=== PATIENT | female | born 1935 | race Caucasian/White ===

== ENCOUNTER 2018-11-07 06:48 | Observation (INO) | payer MEDICARE, BC ==
[2018-11-07] MEDS ORDERED: Sodium Chloride 0.9% 10 ML Syringe FLUSH PRN (07:13)
[2018-11-07] MEDS ORDERED: Sodium Chloride 0.9% 1,000 ML IV SCH (07:15)
[2018-11-07] MEDS ORDERED: Ondansetron 4 MG/2 ML SDV IM ONE (07:16)
[2018-11-07] MEDS ORDERED: cefTRIAXone 2 GM Vial IM ONE (07:17)
[2018-11-07] MEDS ORDERED: Ondansetron 4 MG/2 ML SDV IVPUSH ONE (07:18)
[2018-11-07] MEDS ORDERED: cefTRIAXone 2 GM Vial IVPUSH ONE (07:19)
--- NOTE | 2018-11-07 07:37 | EDM.PDOC ---
ED HPI GENERAL MEDICAL PROBLEM - General Chief Complaint: General Stated Complaint: nausea, fever Time Seen by Provider: 11/07/18 07:10 Source of Information: Reports: Patient History Limitations: Reports: No Limitations - History of Present Illness INITIAL COMMENTS - FREE TEXT/NARRATIVE: [place] comes in the AM with complaints of fever, chills, nausea that started this morning around 5 am. She does state she has SOB. She denies headache, chest pain or pressure or any numbness to jaw, neck or extremities. She denies abdominal pain. Denies urinary symptoms. Denies blood in urine, stool, or emesis. No recent illness. She has had cholecystectomy, appendectomy, hysterectomy with bilateral oophorectomy. Primary physician is Dr. Daly at [facility] in [place]. Onset: Today, Sudden Duration: Intermittent Location: Reports: Generalized Associated Symptoms: Reports: Fever/Chills, Nausea/Vomiting - Related Data Allergies Allergy/AdvReac Type Severity Reaction Status Date / Time atorvastatin [From Lipitor] Allergy Muscle Verified 11/07/18 06:57 Aches Penicillins Allergy Other Verified 11/07/18 06:57 Home Meds: Home Meds Aspirin [Lo-Dose Aspirin EC] 81 mg PO DAILY 06/21/16 [History] Calcium Citrate/Vitamin D2 [Salvador-Citrate Plus Vitamin D Tab] 1 tab PO BID [History] Levothyroxine 75 mcg PO DAILY 06/21/16 [History] Simvastatin [Zocor] 5 mg PO ASDIRECTED 06/21/16 [History] Acetaminophen [Tylenol Arthritis] 1 - 2 tab PO Q8H PRN 11/07/18 [History] Cyanocobalamin (Vitamin B12) [Vitamin B12] 1,000 mcg PO DAILY 11/07/18 [History] Lisinopril 1 tab PO DAILY 11/07/18 [History] Past Medical History Cardiovascular History: Reports: High Cholesterol, Hypertension Endocrine/Metabolic History: Reports: Hypothyroidism - Past Surgical History GI Surgical History: Reports: Appendectomy, Cholecystectomy Female Surgical History: Reports: Hysterectomy Musculoskeletal Surgical History: Reports: Knee Replacement Social & Family History - Tobacco Use Smoking Status *Q: Former Smoker Used Tobacco, but Quit: Yes Month/Year Tobacco Last Used: long ago. Smoked "when I thought it was smart to do it." ED ROS GENERAL - Review of Systems Review Of Systems: See Below Constitutional: Reports: Fever, Chills HEENT: Reports: No Symptoms Respiratory: Reports: Shortness of Breath Cardiovascular: Reports: No Symptoms Endocrine: Reports: No Symptoms GI/Abdominal: Reports: Nausea : Reports: No Symptoms Musculoskeletal: Reports: No Symptoms Skin: Reports: No Symptoms Neurological: Reports: No Symptoms Psychiatric: Reports: No Symptoms Hematologic/Lymphatic: Reports: No Symptoms Immunologic: Reports: No Symptoms ED EXAM, GENERAL - Physical Exam Exam: See Below Free Text/Narrative:: PLEASE USE ER NOTE FOR ADMISSION HISTORY AND PHYSICAL Exam Limited By: No Limitations General Appearance: Alert, WD/WN, No Apparent Distress Eye Exam: Bilateral Eye: EOMI, Normal Inspection, PERRL Ears: Normal TMs Nose: Normal Inspection, Normal Mucosa, No Blood Throat/Mouth: Normal Inspection, Normal Lips, Normal Teeth, Normal Gums, Normal Oropharynx, Normal Voice, No Airway Compromise Head: Atraumatic, Normocephalic Neck: Normal Inspection, Supple, Non-Tender, Full Range of Motion Respiratory/Chest: No Respiratory Distress, Lungs Clear, Normal Breath Sounds, No Accessory Muscle Use, Chest Non-Tender Cardiovascular: Systolic Murmur (2/6) Peripheral Pulses: 2+: Posterior Tibial (L), Posterior Tibial (R), Dorsalis Pedis (L), Dorsalis Pedis (R) GI/Abdominal: Normal Bowel Sounds, Soft, Non-Tender, No Organomegaly, No Distention, No Abnormal Bruit, No Mass Back Exam: Normal Inspection, Full Range of Motion, NT Extremities: Normal Inspection, Normal Range of Motion, Non-Tender, Normal Capillary Refill, No Pedal Edema Neurological: Alert, Oriented, CN II-XII Intact, Normal Cognition, Normal Gait, Normal Reflexes, No Motor/Sensory Deficits Psychiatric: Normal Affect, Normal Mood Skin Exam: Warm, Dry, Intact, Normal Color, No Rash Lymphatic: No Adenopathy EKG INTERPRETATION EKG Date: 11/07/18 Time: 07:35 Rhythm: Other (sinus tachycardia) Rate (Beats/Min): 129 [place]: Normal P-Wave: Present QRS: Normal ST-T: Normal QT: Normal Comparison: NA - No Prior EKG EKG Interpretation Comments: Sinus tachycardia possible old anterior SC Course - Vital Signs Last Recorded V/S: Last Vital Signs Temp 38.1 C 11/07/18 09:12 Pulse 126 H 11/07/18 09:12 Resp 20 11/07/18 08:00 BP 136/71 11/07/18 09:12 Pulse Ox 89 L 11/07/18 09:12 - Orders/Labs/Meds Orders: Active Orders 24 hr Category Date Time Status EKG 12 Lead [EKG Documentation Completion] [RC] STAT Care 11/07/18 07:28 Active CULTURE BLOOD [BC] Stat Lab 11/07/18 07:05 Received CULTURE BLOOD [BC] Stat Lab 11/07/18 07:09 Results CULTURE STREP A CONFIRMATION [] Stat Lab 11/07/18 07:10 Results STREP SCRN A RAPID W CULT CONF [RM] Stat Lab 11/07/18 07:10 Results UA W/MICROSCOPIC [URIN] Stat Lab 11/07/18 07:10 Ordered Sodium Chloride 0.9% [Normal Saline] 1,000 ml Med 11/07/18 07:15 Active IV ASDIRECTED Sodium Chloride 0.9% [Saline Flush] Med 11/07/18 07:13 Active 10 ml FLUSH ASDIRECTED PRN Blood Culture x2 Reflex Set [OM.PC] Stat Oth 11/07/18 07:10 Ordered Saline Lock Insert [OM.PC] Routine Oth 11/07/18 07:13 Ordered Medication Orders Sodium Chloride (Normal Saline) 1,000 mls @ 500 mls/hr IV ASDIRECTED JENI Last Admin: 11/07/18 07:15 Dose: 500 mls/hr Sodium Chloride (Saline Flush) 10 ml FLUSH ASDIRECTED PRN PRN Reason: Keep Vein Open Labs: Laboratory Tests 11/07/18 11/07/18 11/07/18 Range/Units 07:05 07:05 07:05 WBC 5.8 (4.0-10.0) x10^3/uL RBC 4.08 (4.00-5.50) x10^6/uL Hgb 13.8 (12.0-16.0) g/dL Hct 41.4 (33.0-47.0) % MCV 101.5 H (78.0-93.0) fL MCH 33.8 H (26.0-32.0) pg MCHC 33.3 (32.0-36.0) g/dL RDW Coeff of Reggie 12.3 (10.0-15.0) % Plt Count 272 (130-400) x10^3/uL Neut % (Auto) 84.0 H (50.0-80.0) % Lymph % (Auto) 13.8 L (25.0-50.0) % Ponce % (Auto) 0.7 L (2.0-11.0) % Eos % (Auto) 1.0 (0.0-4.0) % Baso % (Auto) 0.5 (0.2-1.2) % PT 10.2 (9.6-11.4) SEC INR 1.0 L (2.0-3.5) Sodium 141 (136-145) mmol/L Potassium 4.0 (3.5-5.1) mmol/L Chloride 105 (98-107) mmol/L Carbon Dioxide 20 L (21-32) mmol/L Anion Gap 20.0 (10-20) mmol/L BUN 33 H (7-18) mg/dL Creatinine 1.3 H (0.55-1.02) mg/dL Est Cr Clr Drug Dosing 25.48 mL/min Estimated GFR (MDRD) 39 Glucose 134 H (74-106) mg/dL Lactic Acid (0.4-2.0) mmol/L Calcium 9.7 (8.5-10.1) mg/dL Corrected Calcium 9.86 (8.5-10.1) mg/dL Total Bilirubin 0.8 (0.2-1.0) mg/dL AST 13 L (15-37) U/L ALT 15 (14-59) U/L Alkaline Phosphatase 81 (46-116) U/L Troponin I (<=0.056) ng/mL NT-Pro-B Natriuret Pep 150 (<=450) pg/mL Total Protein 7.5 (6.4-8.2) g/dL Albumin 3.8 (3.4-5.0) g/dL Globulin 3.7 Albumin/Globulin Ratio 1.03 Amylase 66 (25-115) U/L Lipase 362 (73-393) U/L TSH, Ultra Sensitive 5.295 H (0.358-3.74) uIU/mL 11/07/18 11/07/18 Range/Units 07:05 07:05 WBC (4.0-10.0) x10^3/uL RBC (4.00-5.50) x10^6/uL Hgb (12.0-16.0) g/dL Hct (33.0-47.0) % MCV (78.0-93.0) fL MCH (26.0-32.0) pg MCHC (32.0-36.0) g/dL RDW Coeff of Reggie (10.0-15.0) % Plt Count (130-400) x10^3/uL Neut % (Auto) (50.0-80.0) % Lymph % (Auto) (25.0-50.0) % Ponce % (Auto) (2.0-11.0) % Eos % (Auto) (0.0-4.0) % Baso % (Auto) (0.2-1.2) % PT (9.6-11.4) SEC INR (2.0-3.5) Sodium (136-145) mmol/L Potassium (3.5-5.1) mmol/L Chloride (98-107) mmol/L Carbon Dioxide (21-32) mmol/L Anion Gap (10-20) mmol/L BUN (7-18) mg/dL Creatinine (0.55-1.02) mg/dL Est Cr Clr Drug Dosing mL/min Estimated GFR (MDRD) Glucose (74-106) mg/dL Lactic Acid 4.1 H* (0.4-2.0) mmol/L Calcium (8.5-10.1) mg/dL Corrected Calcium (8.5-10.1) mg/dL Total Bilirubin (0.2-1.0) mg/dL AST (15-37) U/L ALT (14-59) U/L Alkaline Phosphatase (46-116) U/L Troponin I < 0.017 (<=0.056) ng/mL NT-Pro-B Natriuret Pep (<=450) pg/mL Total Protein (6.4-8.2) g/dL Albumin (3.4-5.0) g/dL Globulin Albumin/Globulin Ratio Amylase (25-115) U/L Lipase (73-393) U/L TSH, Ultra Sensitive (0.358-3.74) uIU/mL Meds: Medications Generic Name Dose Route Start Last Admin Trade Name Freq PRN Reason Stop Dose Admin Sodium Chloride 1,000 mls @ 500 mls/hr 11/07/18 07:15 11/07/18 07:15 Normal Saline IV 500 mls/hr ASDIRECTED JENI Administration Sodium Chloride 10 ml 11/07/18 07:13 Saline Flush FLUSH ASDIRECTED PRN Keep Vein Open Discontinued Medications Generic Name Dose Route Start Last Admin Trade Name Kartikq PRN Reason Stop Dose Admin Ceftriaxone Sodium 2 gm 11/07/18 07:19 11/07/18 07:29 Rocephin IVPUSH 11/07/18 07:20 2 gm STAT ONE Administration Ondansetron HCl 4 mg 11/07/18 07:18 11/07/18 07:37 Zofran IVPUSH 11/07/18 07:19 4 mg ONETIME ONE Administration - Re-Assessments/Exams Free Text/Narrative Re-Assessment/Exam: 11/07/18 08:25 Chest x-ray negative for radiologic evidence of infection. No pneumonia, pleural effusions, cardiomegaly or CHF Lab results grossly normal with exception of elevated lactic acid. Questionable causation as to infection or renal status with Creatinine 1.3, BUN 33, GFR 39, WBC level normal at 5.8, still await urinary sample Departure - Departure Time of Disposition: 08:25 Disposition: Refer to Observation Condition: Good Clinical Impression: Lactic acidosis - Discharge Information *PRESCRIPTION DRUG MONITORING PROGRAM REVIEWED*: Not Applicable *COPY OF PRESCRIPTION DRUG MONITORING REPORT IN PATIENT CHRIS: Not Applicable - Problem List & Annotations (1) Lactic acidosis SNOMED Code(s): 70234691 Code(s): E87.2 - ACIDOSIS Status: Acute Priority: Medium Current Visit : Yes - Problem List Review Problem List Initiated/Reviewed/Updated: Yes - My Orders Last 24 Hours: My Active Orders 11/07/18 07:05 CULTURE BLOOD [BC] Stat 11/07/18 07:09 CULTURE BLOOD [BC] Stat 11/07/18 07:10 CULTURE STREP A CONFIRMATION [] Stat STREP SCRN A RAPID W CULT CONF [RM] Stat UA W/MICROSCOPIC [URIN] Stat Blood Culture x2 Reflex Set [OM.PC] Stat 11/07/18 07:13 Sodium Chloride 0.9% [Saline Flush] 10 ml FLUSH ASDIRECTED PRN Saline Lock Insert [OM.PC] Routine 11/07/18 07:15 Sodium Chloride 0.9% [Normal Saline] 1,000 ml IV ASDIRECTED 11/07/18 07:28 EKG 12 Lead [EKG Documentation Completion] [RC] STAT - Assessment/Plan Last 24 Hours: My Active Orders 11/07/18 07:05 CULTURE BLOOD [BC] Stat 11/07/18 07:09 CULTURE BLOOD [BC] Stat 11/07/18 07:10 CULTURE STREP A CONFIRMATION [RM] Stat STREP SCRN A RAPID W CULT CONF [RM] Stat UA W/MICROSCOPIC [URIN] Stat Blood Culture x2 Reflex Set [OM.PC] Stat 11/07/18 07:13 Sodium Chloride 0.9% [Saline Flush] 10 ml FLUSH ASDIRECTED PRN Saline Lock Insert [OM.PC] Routine 11/07/18 07:15 Sodium Chloride 0.9% [Normal Saline] 1,000 ml IV ASDIRECTED 11/07/18 07:28 EKG 12 Lead [EKG Documentation Completion] [RC] STAT Assessment:: lactic acidosis Plan: Plan 1. Lactic acidosis - gentle rehydration due to dehydrated status, recheck lactic acid in 6 hours, recheck metabolic panel in AM, still awaiting urinalysis results 2. Dehydration - continue IV fluids 0.9% Sodium Chloride at 100 ml/hr
--- NOTE | 2018-11-07 07:43 | CR ---
[id number] RAD/RAD Chest PA or AP 1V EXAM: SINGLE VIEW CHEST. INDICATION: SEPSIS COMPARISON: NO PREVIOUS SIMILAR EXAM IS AVAILABLE FINDINGS: The lungs are clear. The cardiomediastinal contour is moderately enlarged. IMPRESSION: NO PNEUMONIA. Prashant Levin MD 11/07/18 0741 Thank you for allowing us to participate in the care of your patient.
[2018-11-07] MEDS ORDERED: Ondansetron 4 MG Tab.DIS PO PRN (09:56)
[2018-11-07] MEDS ORDERED: Acetaminophen 325 MG Tab PO PRN (09:56)
[2018-11-07] MEDS ORDERED: Ibuprofen 200 MG Tab PO PRN (09:56)
[2018-11-07] MEDS ORDERED: Acetaminophen/HYDROcodone 325-5 MG Tab PO PRN (09:56)
[2018-11-07] MEDS ORDERED: Albuterol/Ipratropium 3.0-0.5 MG/3 ML Neb Soln NEB PRN (09:56)
[2018-11-07] MEDS ORDERED: Lisinopril 10 MG Tab PO SCH (10:45)
[2018-11-07] MEDS: LEVOTHYROXINE 75 MCG PO SCH (10:52)
[2018-11-07] MEDS: Sodium Chloride 0.9% 1,000 ML IV SCH ×2 (10:53→18:51)
[2018-11-07] MEDS ORDERED: LISINOPRIL 10 MG PO SCH (20:00)
[2018-11-07] MEDS ORDERED: Calcium Citrate/Vitamin D3 315 MG-250 Unit Tab PO SCH (20:00)
[2018-11-07] MEDS ORDERED: Cyanocobalamin (Vitamin B12) 1,000 MCG Tab PO SCH (20:00)
[2018-11-07] MEDS ORDERED: Aspirin 81 MG Tab.EC PO SCH (20:00)
[2018-11-07] MEDS ORDERED: [UNRECOGNIZED DRUG - OTHER] PO SCH (20:00)
[2018-11-08 04:55] VITALS: BP 136/61
[2018-11-08 06:56] LABS: ANION GAP 11.3 mmol/L (10-20)
[2018-11-08] MEDS: LEVOTHYROXINE 75 MCG PO SCH (07:39)
--- NOTE | 2018-11-08 08:11 | PCM.DCSUM1 ---
Discharge Summary - Hospital Course Free Text/Narrative:: Pt. was admitted observation on 11/07/18 with UTI and lactic acidosis. She was admitted by Wan Moreno. Please refer to his H and P regarding this admission. Pt. states she is feeling much better today. Her lactic acid has normalized. She states that she is no longer experiencing abdominal pain and she states that she feels less fatigued and weak. She was given normal saline overnight. Her urine has cleared considerably. Continues to have some low-grade fevers but that has decreased as well. Pt. is requesting discharge at this point. Diagnosis: Stroke: No Modified Cassia Scale: No Symptoms at All Modified Cassia Scale Score: 0 - Discharge Data Discharge Date: 11/08/18 Discharge Disposition: Home, Self-Care 01 Condition: Good - Discharge Diagnosis/Problem(s) (1) UTI (urinary tract infection) SNOMED Code(s): 77201122 ICD Code: N39.0 - URINARY TRACT INFECTION, SITE NOT SPECIFIED Status: Acute Current Visit: Yes Qualifiers: Urinary tract infection type: acute cystitis Hematuria presence: with hematuria Qualified Code(s): N30.01 - Acute cystitis with hematuria (2) Lactic acidosis SNOMED Code(s): 73152080 ICD Code: E87.2 - ACIDOSIS Status: Acute Priority: Medium Current Visit : Yes - Patient Instructions Diet: Usual Diet as Tolerated Activity: As Tolerated Driving: Do Not Drive Showering/Bathing: May Shower - Discharge Plan *PRESCRIPTION DRUG MONITORING PROGRAM REVIEWED*: Not Applicable *COPY OF PRESCRIPTION DRUG MONITORING REPORT IN PATIENT CHRIS: Not Applicable Home Medications: Home Meds Aspirin [Lo-Dose Aspirin EC] 81 mg PO BEDTIME 06/21/16 [History] Calcium Citrate/Vitamin D2 [Salvador-Citrate Plus Vitamin D Tab] 1 tab PO BEDTIME [History] Levothyroxine 75 mcg PO DAILY 06/21/16 [History] Simvastatin [Zocor] 5 mg PO ASDIRECTED 06/21/16 [History] Acetaminophen [Tylenol Arthritis] 1 - 2 tab PO Q8H PRN 11/07/18 [History] Cyanocobalamin (Vitamin B12) [Vitamin B12] 1,000 mcg PO BEDTIME 11/07/18 [ History] Lisinopril 1 tab PO BEDTIME 11/07/18 [History] Patient Handouts: Urinary Tract Infection, Adult Forms: ED Department Discharge Referrals: Norma Daly MD [Primary Care Provider] - - Discharge Summary/Plan Comment DC Time >30 min.: Yes Discharge Summary/Plan Comment: Cipro 500mg twice daily for 7 days. Take a probiotic daily. Follow-up in clinic in 10-14 days Drink plenty of fluids Tylenol as needed for fever Return to ER if you have any increased weakness, lightheadedness, chest pain, shortness of breath, or pain. - General Info Date of Service: 11/08/18 Functional Status: Reports: Pain Controlled - Review of Systems General: Reports: No Symptoms HEENT: Reports: No Symptoms Pulmonary: Reports: No Symptoms Cardiovascular: Reports: No Symptoms Gastrointestinal: Reports: No Symptoms Genitourinary: Reports: Dysuria Musculoskeletal: Reports: No Symptoms Skin: Reports: No Symptoms Neurological: Reports: No Symptoms Psychiatric: Reports: No Symptoms - Patient Data Vitals - Most Recent: Last Vital Signs Temp 37.1 C 11/08/18 04:54 Pulse 97 11/08/18 04:54 Resp 18 11/08/18 04:54 BP 136/61 11/08/18 04:54 Pulse Ox 95 11/08/18 04:54 Weight - Most Recent: 68.039 kg I&O - Last 24 hours: Intake & Output 11/07/18 11/08/18 11/08/18 22:59 06:59 14:59 Intake Total 1229 1364 Balance 1229 1364 Lab Results - Last 24 hrs: Laboratory Results - last 24 hr 11/07/18 11/07/18 11/07/18 Range/Units 07:05 10:04 13:00 Sodium (136-145) mmol/L Potassium (3.5-5.1) mmol/L Chloride (98-107) mmol/L Carbon Dioxide (21-32) mmol/L Anion Gap (10-20) mmol/L BUN (7-18) mg/dL Creatinine (0.55-1.02) mg/dL Est Cr Clr Drug Dosing mL/min Estimated GFR (MDRD) Glucose (74-106) mg/dL Lactic Acid 1.8 (0.4-2.0) mmol/L Calcium (8.5-10.1) mg/dL Troponin I < 0.017 (<=0.056) ng/mL Urine Color Yellow (YELLOW) Urine Appearance Turbid H (CLEAR) Urine pH 5.5 (5.0-8.0) Ur Specific Carrier 1.010 Urine Protein 30 H (NEGATIVE) mg/dL Urine Glucose (UA) Negative (NEGATIVE) mg/dL Urine Ketones Negative (NEGATIVE) mg/dL Urine Occult Blood Small H (NEGATIVE) Urine Nitrite Positive H (NEGATIVE) Urine Bilirubin Negative (NEGATIVE) Urine Urobilinogen 0.2 (0.2) EU/dL Ur Leukocyte Esterase Moderate H (NEGATIVE) Urine RBC 0-5 (NOT SEEN) /HPF Urine WBC >100 H (NOT SEEN) /HPF Urine WBC Clumps Few Ur Squamous Epith Cells Few H (NEGATIVE) /HPF Amorphous Sediment Moderate Urine Bacteria Moderate H (NEGATIVE) /HPF Hyaline Casts Occasional H (NEGATIVE) /HPF Urine Mucus Few H (NEGATIVE) /LPF 11/08/18 11/08/18 Range/Units 06:19 06:19 Sodium 141 (136-145) mmol/L Potassium 4.3 (3.5-5.1) mmol/L Chloride 108 H (98-107) mmol/L Carbon Dioxide 26 (21-32) mmol/L Anion Gap 11.3 (10-20) mmol/L BUN 19 H (7-18) mg/dL Creatinine 1.1 H (0.55-1.02) mg/dL Est Cr Clr Drug Dosing 30.11 mL/min Estimated GFR (MDRD) 47 Glucose 106 (74-106) mg/dL Lactic Acid 0.7 (0.4-2.0) mmol/L Calcium 9.3 (8.5-10.1) mg/dL Troponin I (<=0.056) ng/mL Urine Color (YELLOW) Urine Appearance (CLEAR) Urine pH (5.0-8.0) Ur Specific Carrier Urine Protein (NEGATIVE) mg/dL Urine Glucose (UA) (NEGATIVE) mg/dL Urine Ketones (NEGATIVE) mg/dL Urine Occult Blood (NEGATIVE) Urine Nitrite (NEGATIVE) Urine Bilirubin (NEGATIVE) Urine Urobilinogen (0.2) EU/dL Ur Leukocyte Esterase (NEGATIVE) Urine RBC (NOT SEEN) /HPF Urine WBC (NOT SEEN) /HPF Urine WBC Clumps Ur Squamous Epith Cells (NEGATIVE) /HPF Amorphous Sediment Urine Bacteria (NEGATIVE) /HPF Hyaline Casts (NEGATIVE) /HPF Urine Mucus (NEGATIVE) /LPF MELECIO Results - Last 24 hrs: Microbiology 11/07/18 07:10 Quick Strep Confirmation Culture - Final Throat NO GROUP A STREP ISOLATED Group A Streptococcus Rapid Screen - Final NEGATIVE STREP A SCREEN 11/07/18 07:09 Aerobic Blood Culture - Preliminary Blood - Venous - Lab Draw NO GROWTH AFTER 1 DAY Anaerobic Blood Culture - Final 11/07/18 07:05 Aerobic Blood Culture - Preliminary Blood - Venous NO GROWTH AFTER 1 DAY Anaerobic Blood Culture - Preliminary NO GROWTH AFTER 1 DAY 11/07/18 07:10 Influenza Type A Antigen Screen - Final Nasopharyngeal Swab NEGATIVE INFLUENZA A VIRUS AG Influenza Type B Antigen Screen - Final NEGATIVE INFLUENZA B VIRUS AG Med Orders - Current: Current Medications Acetaminophen (Tylenol) 650 mg PO Q4H PRN PRN Reason: Pain (Mild 1-3)/fever Hydrocodone Bitart/Acetaminophen ([place] 325-5 Mg) 1 tab PO Q4H PRN PRN Reason: Pain (moderate 4-6) Albuterol/Ipratropium (Duoneb 3.0-0.5 Mg/3 Ml) 3 ml NEB Q4H PRN PRN Reason: dyspnea/wheezing Aspirin (Halfprin) 81 mg PO BEDTIME [facility] Last Admin: 11/07/18 20:12 Dose: 81 mg Calcium Citrate (Calcium Citrate + D) 1 tab PO BEDTIME [facility] Last Admin: 11/07/18 20:12 Dose: 1 tab Cyanocobalamin (Vitamin B12) 1,000 mcg PO BEDTIME [facility] Last Admin: 11/07/18 20:12 Dose: 1,000 mcg Sodium Chloride (Normal Saline) 1,000 mls @ 100 mls/hr IV ASDIRECTED [facility] Last Admin: 11/07/18 18:51 Dose: 100 mls/hr Ibuprofen (Motrin) 600 mg PO Q6H PRN PRN Reason: Pain (mild 1-3) Levothyroxine Sodium (Levothyroxine) 75 mcg PO DAILY [facility] Last Admin: 11/08/18 07:39 Dose: 75 mcg Lisinopril (Prinivil) 10 mg PO BEDTIME [facility] Last Admin: 11/07/18 20:13 Dose: 10 mg Ondansetron HCl (Zofran Odt) 4 mg PO Q6H PRN PRN Reason: nausea, able to take PO Simvastatin (Zocor) 10 mg PO BEDTIME [facility] Last Admin: 11/07/18 20:14 Dose: 10 mg Sodium Chloride (Saline Flush) 10 ml FLUSH ASDIRECTED PRN PRN Reason: Keep Vein Open Discontinued Medications Ceftriaxone Sodium (Rocephin) 2 gm IVPUSH STAT ONE Stop: 11/07/18 07:20 Last Admin: 11/07/18 07:29 Dose: 2 gm Sodium Chloride (Normal Saline) 1,000 mls @ 500 mls/hr IV ASDIRECTED [facility] Last Admin: 11/07/18 07:15 Dose: 500 mls/hr Lisinopril (Prinivil) 10 mg PO DAILY [facility] Last Admin: 11/07/18 11:35 Dose: Not Given Ondansetron HCl (Zofran) 4 mg IVPUSH ONETIME ONE Stop: 11/07/18 07:19 Last Admin: 11/07/18 07:37 Dose: 4 mg - Exam Quality Assessment: Reports: Supplemental Oxygen General: Reports: Alert, Oriented HEENT: Reports: Pupils Equal, Pupils Reactive, EOMI, Mucous Membr. Moist/[place] Neck: Reports: Supple Lungs: Reports: Clear to Auscultation, Normal Respiratory Effort Cardiovascular: Reports: Regular Rate, Regular Rhythm GI/Abdominal Exam: Normal Bowel Sounds, Soft, Non-Tender, No Organomegaly, No Distention, No Abnormal Bruit, No Mass, Pelvis Stable (Female) Exam: Deferred Rectal (Female) Exam: Deferred Back Exam: Reports: Normal Inspection, Full Range of Motion Extremities: Normal Inspection, Normal Range of Motion, Non-Tender, No Pedal Edema, Normal Capillary Refill Skin: Reports: Warm, Dry, Intact Neurological: Reports: No New Focal Deficit Psy/Mental Status: Reports: Alert, Normal Affect, Normal Mood
== END 2018-11-08 08:53 | disposition home or self-care (01) ==
LOC: VM.ED 06:48 → VM.MS 08:20 → VM.ED 08:25
PROVIDERS: ADMIT Nurse Practitioner Family; ATTEND Nurse Practitioner Family
DX: N30.01 Acute cystitis with hematuria (principal); E87.2 Acidosis; Z87.891 Personal history of nicotine dependence; Z79.82 Long term (current) use of aspirin; Z79.899 Other long term (current) drug therapy; Z88.8 Allergy status to other drugs, medicaments and biological substances; Z88.0 Allergy status to penicillin
CPT/HCPCS: 36415; 71045; 80048; 80053; 81001; 82150; 83605; 83690; 83880; 84443; 84484; 85025; 85610; 87040; 87081; 87086; 87804; 87804-59; 87880-QW; 93005; 93010; 96361; 96374; 96375; 99217; 99220; 99285-25; A9270-GY; J0696; J2405; J7030

== ENCOUNTER 2019-05-10 03:31 | Emergency (ER) | payer MEDICARE, BC ==
[2019-05-10] MEDS ORDERED: Take Home: Acetaminophen/HYDROcodone 325-5 MG, 5 Tab Pack PO ONE (03:48)
[2019-05-10 04:24] VITALS: BP 188/99; PULSE 78
--- NOTE | 2019-05-10 06:37 | EDM.PDOC ---
ED HPI GENERAL MEDICAL PROBLEM - General Chief Complaint: General Stated Complaint: Shingles Pain Time Seen by Provider: 05/10/19 03:40 Source of Information: Reports: Patient History Limitations: Reports: No Limitations - History of Present Illness INITIAL COMMENTS - FREE TEXT/NARRATIVE: PtNino presents to ER with complaints of shingles pain. Pt. was seen in clinic on and started on a week of acyclovir. She has been experiencing searing pain to the R side of her chest for approx. 1 week. Denies any fever or chills. She was started on tramadol yesterday but this has not been helping. She states that she has not been able to sleep. She characterizes the discomfort as an electric, shooting pain with a burning sensation as well. Onset Date: 05/10/19 Location: Reports: Chest Treatments PROFESSOR OF GEOLOGY: Reports: NSAIDS, Other (see below) Other Treatments PROFESSOR OF GEOLOGY: Tramadol Right Side of Chest and Right Mid-BAck Pain Score (Numeric/FACES): 7 - Related Data Allergies Allergy/AdvReac Type Severity Reaction Status Date / Time Penicillins Allergy Unknown Shortness Verified 05/10/19 04:17 of Breath influenza virus vacc Allergy Rash Verified 05/10/19 04:17 trivalent, split [From Fluzone] atorvastatin [From Lipitor] AdvReac Unknown Muscle Verified 11/07/18 10:16 Aches Home Meds: Home Meds Aspirin [Lo-Dose Aspirin EC] 81 mg PO BEDTIME 06/21/16 [History] Calcium Citrate/Vitamin D2 [Salvador-Citrate Plus Vitamin D Tab] 1 tab PO BID [History] Levothyroxine 75 mcg PO DAILY 06/21/16 [History] Simvastatin [Zocor] 10 mg PO ASDIRECTED 06/21/16 [History] Acetaminophen [Tylenol Arthritis] 1 - 2 tab PO Q8H PRN 11/07/18 [History] Cyanocobalamin (Vitamin B12) [Vitamin B12] 1,000 mcg PO BEDTIME 11/07/18 [ History] Lisinopril 1 tab PO BEDTIME 11/07/18 [History] Alendronate Sodium [Fosamax] 70 mg PO ASDIRECTED 05/10/19 [History] Past Medical History HEENT History: Reports: Hard of Hearing, Other (See Below) Other HEENT History: 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 Left wrist fracture. Complete tear of right rotator cuff Neurological History: Reports: Other (See Below) Other Neuro History: Memory Difficulty Psychiatric History: Reports: Other (See Below) Other Psychiatric History: High risk medication use Endocrine/Metabolic History: Reports: Hypothyroidism, Other (See Below) Other Endocrine/Metabolic History: Hyperglycemia Hematologic History: Reports: B12 Deficiency, Other (See Below) Other Hematologic History: Macrocytosis - Past Surgical History HEENT Surgical History: Reports: Cataract Surgery GI Surgical History: Reports: Appendectomy, Cholecystectomy, Colonoscopy, Other (See Below) Other GI Surgeries/Procedures: Laparoscopic procedure for bowel obstruction in 1984 Female Surgical History: Reports: Hysterectomy Musculoskeletal Surgical History: Reports: Knee Replacement Social & Family History - Family History Family Medical History: Noncontributory - Tobacco Use Smoking Status *Q: Never Smoker - Caffeine Use Caffeine Use: Reports: Coffee - Recreational Drug Use Recreational Drug Use: No ED ROS GENERAL - Review of Systems Review Of Systems: See Below Constitutional: Reports: No Symptoms HEENT: Reports: No Symptoms Respiratory: Reports: No Symptoms Cardiovascular: Reports: No Symptoms Endocrine: Reports: No Symptoms GI/Abdominal: Reports: No Symptoms : Reports: No Symptoms Musculoskeletal: Reports: No Symptoms Skin: Reports: Other (shingles) Neurological: Reports: No Symptoms Psychiatric: Reports: No Symptoms Hematologic/Lymphatic: Reports: No Symptoms Immunologic: Reports: No Symptoms ED EXAM, GENERAL - Physical Exam Exam: See Below Exam Limited By: No Limitations General Appearance: Alert, WD/WN, No Apparent Distress Respiratory/Chest: No Respiratory Distress, Lungs Clear, Normal Breath Sounds, No Accessory Muscle Use, Chest Non-Tender Cardiovascular: Normal Peripheral Pulses, Regular Rate, Rhythm, No Edema, No Gallop, No JVD, No Murmur, No Rub Skin Exam: Warm, Dry, Zoster-Like Rash (extending from anterior into lateral and posterior chest wall on the R side.) Course - Vital Signs Last Recorded V/S: Last Vital Signs Temp 35.7 C 05/10/19 03:35 Pulse 78 05/10/19 03:35 Resp 14 05/10/19 03:35 BP 188/99 H 05/10/19 03:35 Pulse Ox 98 05/10/19 03:35 - Orders/Labs/Meds Meds: Medications Discontinued Medications Generic Name Dose Route Start Last Admin Trade Name Sudha PRN Reason Stop Dose Admin Hydrocodone Bitart/Acetaminophen 1 packet 05/10/19 03:48 05/10/19 03:57 Take Home: Acetam/Hydrocodon 325-5 Mg, 5 Pack PO 05/10/19 03:49 1 packet ONETIME ONE Administration Departure - Departure Time of Disposition: 18:51 Disposition: Home, Self-Care 01 Clinical Impression: Shingles - Discharge Information Instructions: Shingles, [id number] Referrals: Norma Daly MD [Primary Care Provider] - Forms: ED Department Discharge Additional Instructions: Roxana 5/325mg 1 tablet every 4-6 hours as needed for pain Lidoderm patches up to 3 patches every 12 hours to painful areas Follow-up in clinic in 7-10 days - Assessment/Plan Plan: Pt. was started on Roxana 5/325mg 1 every 4-6 hours as needed for pain. Stop tramadol. She was also given a script for Lidoderm patches that she can fill at the pharmacy. She was advised to follow-up in clinic in 10-14 days. All questions were answered.
== END 2019-05-10 04:06 | disposition home or self-care (01) ==
LOC: VM.ED 03:31
DX: B02.9 Zoster without complications (principal); I10 Essential (primary) hypertension; E78.00 Pure hypercholesterolemia, unspecified; E03.9 Hypothyroidism, unspecified; Z79.82 Long term (current) use of aspirin; Z79.899 Other long term (current) drug therapy; Z88.8 Allergy status to other drugs, medicaments and biological substances; Z88.0 Allergy status to penicillin; Z88.7 Allergy status to serum and vaccine
CPT/HCPCS: 99283; 99284; A9270

== ENCOUNTER 2020-11-13 10:04 | Observation (INO) | payer MEDICARE, BC ==
[2020-11-13] MEDS ORDERED: Sodium Chloride 0.9% 10 ML Syringe FLUSH PRN (10:15)
--- NOTE | 2020-11-13 11:03 | PCM.HP.2 ---
H&P History of Present Illness - General Date of Service: 11/13/20 Admit Problem/Dx: Admission Diagnosis/Problem Admission Diagnosis/Problem Weakness Source of Information: Patient, Family History Limitations: Reports: No Limitations - History of Present Illness Initial Comments - Free Text/Narative: France Drew is a 85yr female with a PMH of HTN, HLD, Hypothyroidism, memory concerns, osteoporosis, and vitamin deficiencies who presents today forweakness and ongoing lightheadedness. She was initially evaluated in the clinic on 11/12/2020 for complaints of palpitations with associated chest wall pain and lightheadedness. EKG demonstrated sinus tachycardia, CBC was within normal limits with some volume contraction noted, BMP with mild electrolyte disturbances and REMINGTON (Cr 2.03, baseline 1.0-1.2), normal troponin and normal TSH. She was found to be severely dehydrated with an AK I and was given 1 L of fluid in the clinic and discharged home with instructions to increase her fluid intake and follow-up if symptoms were worsening.She did okay into the evening and slept well last night however upon wakening this morning she felt overall weak and lightheaded. She is joined by her and daughter;altogether decision was made to admit her to the hospital under observation status for fluids and closer monitoring as well as further workup. She denies any recent travel. Only medication change was addition of Aricept on 11/08/20. Got her first COVID shot 4 weeks ago, deferred 2nd shot today. - Related Data Allergies/Adverse Reactions: Allergies Allergy/AdvReac Type Severity Reaction Status Date / Time influenza virus vacc Allergy Unknown Rash Verified 11/13/20 11:14 trivalent, split [From Fluzone] Penicillins Allergy Unknown Shortness Verified 11/13/20 11:14 of Breath atorvastatin [From Lipitor] AdvReac Unknown Muscle Verified 11/13/20 11:14 Aches Home Medications: Home Meds Aspirin [Lo-Dose Aspirin EC] 81 mg PO BEDTIME 06/21/16 [History] Calcium Citrate/Vitamin D2 [Salvador-Citrate Plus Vitamin D Tab] 1 tab PO BIDMEALS [History] Levothyroxine 75 mcg PO DAILY 06/21/16 [History] Acetaminophen [Tylenol Arthritis] 650 - 1,300 mg PO Q8H PRN MDD 4000 mg/24 hours 11/07/18 [History] Cyanocobalamin (Vitamin B12) [Vitamin B12] 1,000 mcg PO BEDTIME 11/07/18 [History] Alendronate Sodium [Fosamax] 70 mg PO Q7D 05/10/19 [History] Donepezil [Aricept] 5 mg PO DAILY 11/13/20 [History] Metoprolol Succinate [Toprol XL] 37.5 mg PO DAILY 11/13/20 [History] Simvastatin [Zocor] 10 mg PO DAILY 11/13/20 [History] lisinopriL [Prinivil] 20 mg PO DAILY 11/13/20 [History] Past Medical History HEENT History: Reports: Hard of Hearing, Other (See Below) Other HEENT History: 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 Left wrist fracture. Complete tear of right rotator cuff Neurological History: Reports: Other (See Below) Other Neuro History: Memory Difficulty Psychiatric History: Reports: Other (See Below) Other Psychiatric History: High risk medication use Endocrine/Metabolic History: Reports: Hypothyroidism, Other (See Below) Other Endocrine/Metabolic History: Hyperglycemia Hematologic History: Reports: B12 Deficiency, Other (See Below) Other Hematologic History: Macrocytosis - Past Surgical History HEENT Surgical History: Reports: Cataract Surgery Cardiovascular Surgical History: Reports: Varicose GI Surgical History: Reports: Appendectomy, Cholecystectomy, Colonoscopy, Other (See Below) Other GI Surgeries/Procedures: Laparoscopic procedure for bowel obstruction in 1984 Female Surgical History: Reports: Hysterectomy Musculoskeletal Surgical History: Reports: Knee Replacement Social & Family History - Family History Family Medical History: No Pertinent Family History - Caffeine Use Caffeine Use: Reports: Coffee H&P Review of Systems - Review of Systems: Review Of Systems: See Below General: Reports: Malaise, Weakness, Fatigue HEENT: Reports: No Symptoms Pulmonary: Reports: No Symptoms Cardiovascular: Reports: No Symptoms (palptiations and CP improved) Gastrointestinal: Reports: No Symptoms Genitourinary: Reports: No Symptoms Musculoskeletal: Reports: No Symptoms Skin: Reports: No Symptoms Psychiatric: Reports: No Symptoms Neurological: Reports: Dizziness (light-headedness) Exam - Exam Exam: See Below - Exam General: Alert, Oriented, Other (tired appearing) HEENT: Conjunctiva Clear, EOMI, Mucosa Moist & Babcock, Posterior Pharynx Clear, Pupils Reactive, TMs Clear Neck: Supple, Trachea Midline Lungs: Clear to Auscultation, Normal Respiratory Effort Cardiovascular: Regular Rate, Regular Rhythm, Systolic Murmur GI/Abdominal Exam: Normal Bowel Sounds, Soft, Non-Tender, No Distention Extremities: Normal Inspection, Non-Tender, No Pedal Edema Skin: Warm, Dry, Other (tenting for 3s - dehydration) Neurological: Cranial Nerves Intact Neuro Extensive - Mental Status: Alert, Oriented x3, Normal Mood/Affect Neuro Extensive - Motor, Sensory, Reflexes: CN II-XII Intact, Normal Gait Psychiatric: Alert, Normal Affect, Normal Mood - Patient Data Result Diagrams: 11/13/20 10:40 11/13/20 10:40 - Problem List (1) Weakness SNOMED Code(s): 37809018 ICD Code: R53.1 - WEAKNESS Status: Acute Current Visit: Yes (2) Dehydration with hyponatremia SNOMED Code(s): 15210152 ICD Code: E86.0 - DEHYDRATION; E87.1 - HYPO-OSMOLALITY AND HYPONATREMIA Status: Acute Current Visit: Yes Problem List Initiated/Reviewed/Updated: Yes Orders Last 24hrs: Active Orders 24 hr Category Date Time Status Patient Status [ADT] Routine ADT 11/13/20 10:15 Active Intake and Output [RC] 06,18 Care 11/13/20 10:16 Active Oxygen Therapy [RC] .PRN Care 11/13/20 10:15 Active VTE/DVT Education [RC] .PRN Care 11/13/20 10:15 Active Vital Signs [RC] 02,06,10,14,18,22 Care 11/13/20 10:15 Active Heart Healthy Diet [DIET] Diet 11/13/20 Lunch Active C-REACTIVE PROTEIN [CHEM] Routine Lab 11/13/20 10:40 Received CBC WITH AUTO DIFF [HEME] Routine Lab 11/13/20 10:40 Received COMPREHENSIVE METABOLIC PN,CMP [CHEM] Routine Lab 11/13/20 10:40 Received ESR [SEDIMENTATION RATE AUTO] [HEME] Routine Lab 11/13/20 10:40 Received UA W/MICROSCOPIC [URIN] Routine Lab 11/13/20 10:15 Ordered Acetaminophen [TylenoL] Med 11/13/20 10:15 Active 650 mg PO Q4H PRN Aspirin [Halfprin] Med 11/13/20 20:00 Ordered 81 mg PO BEDTIME Calcium Citrate/Vitamin D2 [Salvador-Citrate Plus Vitamin D Med 11/13/20 20:00 Ordered Tab] 1 tab PO BID Cyanocobalamin (Vitamin B12) [Vitamin B12] Med 11/13/20 20:00 Ordered 1,000 mcg PO BEDTIME Donepezil [Aricept] Med 11/14/20 08:00 Ordered 5 mg PO DAILY Levothyroxine Med 11/14/20 08:00 Ordered 75 mcg PO DAILY Metoprolol Succinate [Toprol XL] Med 11/14/20 08:00 Ordered 37.5 mg PO DAILY Ondansetron [Zofran ODT] Med 11/13/20 10:15 Active 4 mg PO Q4H PRN Simvastatin [Zocor] Med 11/13/20 11:00 Ordered 10 mg PO ASDIRECTED Sodium Chloride 0.9% [Normal Saline] 1,000 ml Med 11/13/20 11:30 Active IV ASDIRECTED Sodium Chloride 0.9% [Normal Saline] 500 ml Med 11/13/20 10:30 Active IV ONETIME Sodium Chloride 0.9% [Saline Flush] Med 11/13/20 10:15 Active 10 ml FLUSH ASDIRECTED PRN lisinopriL [Prinivil] Med 11/13/20 20:00 Ordered 20 tab PO BEDTIME Peripheral IV Insertion Adult [OM.PC] Routine Oth 11/13/20 10:15 Ordered Resuscitation Status Routine Resus Stat 11/13/20 10:15 Ordered Medication Orders Acetaminophen (Acetaminophen 325 Mg Tab) 650 mg PO Q4H PRN PRN Reason: Pain (Mild 1-3)/fever Aspirin (Aspirin 81 Mg Tab.Ec) 81 mg PO BEDTIME JENI Cyanocobalamin (Cyanocobalamin (Vitamin B12) 1,000 Mcg Tab) 1,000 mcg PO BEDTIME JENI Donepezil HCl (Donepezil 5 Mg Tab) 5 mg PO DAILY JENI Sodium Chloride (Normal Saline) 500 mls @ 500 mls/hr IV ONETIME ONE Stop: 11/13/20 11:29 Last Admin: 11/13/20 10:52 Dose: 500 mls/hr Documented by: MARLENY Sodium Chloride (Normal Saline) 1,000 mls @ 125 mls/hr IV ASDIRECTED JENI Levothyroxine Sodium (Levothyroxine 75 Mcg Tab) 75 mcg PO DAILY JENI Lisinopril (Lisinopril 10 Mg Tab) mg PO BEDTIME JENI Metoprolol Succinate (Metoprolol Succinate 25 Mg Tab.Er) 37.5 mg PO DAILY JENI Non-Formulary Medication (Calcium Citrate/Vitamin D2 [Salvador-Citrate Plus Vitamin D Tab]) 1 tab PO BID JENI Non-Formulary Medication (Simvastatin [Zocor]) 10 mg PO ASDIRECTED JENI Ondansetron HCl (Ondansetron 4 Mg Tab.Dis) 4 mg PO Q4H PRN PRN Reason: nausea, able to take PO Sodium Chloride (Sodium Chloride 0.9% 10 Ml Syringe) 10 ml FLUSH ASDIRECTED PRN PRN Reason: Keep Vein Open Assessment/Plan Comment:: Generalized Weakness Dehydration REMINGTON Hyponatremia (moderate) Hypokalemia (mild) - Symptoms started on 11/11/20 with tachycardia, dizziness. Seen in clinic on 08/14/20 with normal labs other than REMINGTON with Cr 2.0 (baseline 1.0-1.2). Cardiac workup within normal limites. Treated with 1L NS in clinic. Back today with ongoing symptoms - labs on admit with Na of 127, Slight improvement in Cr at 1.6, K 3.3 - Patient started Aricept on 11/08/20 (small link of this with hyponatremia) Plan: - IVF: NS bolus of 500mL to be followed by NS+K (40mEQ) at 125mL/hr, after that NS @ 125mL/hr - Na and K recheck tonight (1630) - BMP in the am - Holding aricept - PT Chronic: -HTN: continue home lisinopril 20mg daily and metoprolol 37.5mg daily -HLD: continue home zocor 10mg daily -Hypothyroid: continue home levothyroxine 75mcg daily -B12 deficiency: continue home B12 1000mcg daily -Osteoporosis: continue home calcium-vitamin d. Fosamax on hold here -Memory: holding aricept as above Diet: heart healthy IVF: as above DVT: Lovenox SQ Code: FULL Disposition: patient admitted under observation status for workup/treatment of dehydration and hyponatremia. - Mortality Measure Prognosis:: Good
[2020-11-13 11:06] LABS: CHLORIDE,CL 87 mmol/L (98-107)
[2020-11-13 11:10] LABS: ANION GAP 14.3 mmol/L (5-15); SODIUM,NA 127 mmol/L (136-145)
[2020-11-13] MEDS: Sodium Chloride 0.9% 1,000 ML IV SCH ×3 (11:17→22:21)
[2020-11-13] MEDS ORDERED: cefTRIAXone 1 GM Vial IVPUSH SCH (13:00)
[2020-11-13] MEDS ORDERED: Sodium Chloride 0.9% with KCl 1,000 ML IV SCH (13:15)
[2020-11-13] MEDS ORDERED: Enoxaparin 40 MG/0.4 ML Syringe SUBCUT SCH (13:30)
[2020-11-13] MEDS: Potassium Chloride Riders 20 MEQ in Premix Bag 1 BAG IV SCH ×2 (13:45→15:19)
[2020-11-13 18:20] LABS: ANION GAP 12.9 mmol/L (5-15)
[2020-11-13] MEDS: Cyanocobalamin (Vitamin B12) 1,000 MCG Tab PO SCH (19:54)
[2020-11-13] MEDS: Calcium Carbonate/Vitamin D3 1250 MG-200 Unit Tab PO SCH (19:54)
[2020-11-13] MEDS: Aspirin 81 MG Tab.EC PO SCH (19:54)
[2020-11-13] MEDS: Enoxaparin 30 MG/0.3 ML Syringe SUBCUT SCH (19:55)
[2020-11-13] MEDS: Ondansetron 4 MG Tab.DIS PO PRN (20:00)
[2020-11-13] MEDS: Acetaminophen 325 MG Tab PO PRN (23:07)
[2020-11-14] MEDS: Levothyroxine 75 MCG Tab PO SCH (06:13)
[2020-11-14] MEDS: Sodium Chloride 0.9% 1,000 ML IV SCH (06:14)
[2020-11-14] MEDS: Ondansetron 4 MG Tab.DIS PO PRN ×2 (07:46→23:51)
[2020-11-14] MEDS: Acetaminophen 325 MG Tab PO PRN ×2 (07:46→23:51)
[2020-11-14] MEDS: Metoprolol Succinate 25 MG Tab.ER PO SCH (07:47)
[2020-11-14] MEDS: Simvastatin 10 MG Tab PO SCH (07:48)
[2020-11-14] MEDS: Lisinopril 20 MG Tab PO SCH (07:48)
[2020-11-14] MEDS: Calcium Carbonate/Vitamin D3 1250 MG-200 Unit Tab PO SCH ×2 (07:48→20:04)
[2020-11-14] MEDS ORDERED: Donepezil 5 MG Tab PO SCH (08:00)
[2020-11-14] MEDS: Sodium Chloride/Potassium Chloride Tab PO SCH ×2 (08:28→20:04)
[2020-11-14] MEDS: Sulfamethoxazole/Trimethoprim 400-80 MG Tab PO SCH ×2 (08:28→20:04)
[2020-11-14] MEDS: Magnesium Oxide 400 MG Tab PO SCH ×2 (09:54→20:04)
--- NOTE | 2020-11-14 11:41 | PN ---
Progress Note for CARRIE SAEED Date: 11/14/2020 Room #: VM.215 SUBJECTIVE: This is the patient's second day of hospitalization on observation for weakness and low sodium. The patient had been seen 2 days ago at the clinic with weakness, but had a normal sodium, then yesterday was found to have a sodium down to 127. She had been started on Aricept a week ago. She had been having some palpitations and dehydration. She had been given some IV fluids at the clinic 2 days ago, but then yesterday felt to need observation for more closer monitoring. The patient is feeling better this morning. She was hoping she could go home. To note, her has severe CHF and they have been working on restricting salt in their diet, and so patient may have been restricting salt too much, however, she was also told to push fluids, so she may be overconsuming fluids at home. The patient herself is slightly confused. OBJECTIVE: Vital Signs: Her temperature is 36.2 this morning, pulse 71, blood pressure is 142/64, saturations are 95, respiratory rate 18. Skin: Clarita, warm, and dry. Heart: Regular rate and rhythm. Lungs: Clear to auscultation. Abdomen: Soft. Extremities: No edema. LABORATORY DATA: Her lab work done today shows her sodium has only gone up 1 point from 127 up to 128. Her potassium has improved from 3.3 up to 4.0, creatinine 1.6, her GFR has improved from 31 to 47, glucose is 106. Her hemoglobin is 12.2, dropped slightly from 14.1, but felt to be dilutional. Her urinalysis came back showing a few white blood cells, small amount of leukocyte esterase. Urine culture was set up. It is growing gram-negative rods, greater than 10 raised to 6. IMPRESSION: 1. Hyponatremia 2. Dehydratoin. 3. Cystitis. 4. Mild cognitive dysfunction. 5. Palpitations. 6. Hypertension. 7. Hypokalemia. 8. Hypomagnesemia. PLAN: We will saline lock the patient's current IV fluids once current bag is in. We will start her on Bactrim single-strength due to reduced renal function. We will give her Thermotabs to help with sodium level. We have held her Aricept. She may need beginning of Namenda in the clinic, but we will allow her to stabilize. We will have her have a liberal diet and we will recheck her lab work tomorrow morning and hopefully can anticipate discharge tomorrow. We will have magnesium level done on today's lab work if able to. Magnesium came back low at 1.3. GM11/14/2020 08:25:21 MODL: 11/14/2020 11:11:56 /[id number] MTDD
[2020-11-14] MEDS: Enoxaparin 30 MG/0.3 ML Syringe SUBCUT SCH (20:03)
[2020-11-14] MEDS: Aspirin 81 MG Tab.EC PO SCH (20:04)
[2020-11-14] MEDS: Cyanocobalamin (Vitamin B12) 1,000 MCG Tab PO SCH (20:04)
[2020-11-15] MEDS: Levothyroxine 75 MCG Tab PO SCH (06:10)
[2020-11-15 06:13] VITALS: BP 136/66; PULSE 82
[2020-11-15 06:43] LABS: ANION GAP 9.2 mmol/L (5-15)
[2020-11-15] MEDS: Simvastatin 10 MG Tab PO SCH (07:31)
[2020-11-15] MEDS: Lisinopril 20 MG Tab PO SCH (07:31)
[2020-11-15] MEDS: Ondansetron 4 MG Tab.DIS PO PRN (07:31)
[2020-11-15] MEDS: Metoprolol Succinate 25 MG Tab.ER PO SCH (07:31)
[2020-11-15] MEDS: Sulfamethoxazole/Trimethoprim 400-80 MG Tab PO SCH (07:31)
[2020-11-15] MEDS: Acetaminophen 325 MG Tab PO PRN (07:31)
[2020-11-15] MEDS: Calcium Carbonate/Vitamin D3 1250 MG-200 Unit Tab PO SCH (07:31)
[2020-11-15] MEDS: Sodium Chloride/Potassium Chloride Tab PO SCH (07:32)
[2020-11-15] MEDS: Magnesium Oxide 400 MG Tab PO SCH (07:32)
--- NOTE | 2020-11-16 03:19 | DISCH ---
PRIMARY DIAGNOSES: 1. Dehydration. 2. Hyponatremia. 3. Acute cystitis with Klebsiella pneumoniae bacteria. 4. Hypokalemia. 5. Hypomagnesemia. 6. Cognitive dysfunction. 7. Hypertension. 8. Hypothyroidism. 9. Vitamin B12 deficiency. 10.Hypercholesterolemia. SUMMARY OF ADMIT HISTORY AND PHYSICAL: The patient is an 85-year-old female who had been having problems with weakness, palpitations, felt to be dehydration. She received IV infusion day prior in the clinic with a sodium that was normal at 135, and when she presented with ongoing lightheadedness, her sodium had dropped down to 127. EKG showed sinus tachycardia. TSH was normal. Her creatinine had improved from 2.0 to 1.6 on day of admission, but she felt to need observation status for further assessment. SUMMARY OF HOSPITAL COURSE: While hospitalized, she received IV fluids as well as IV potassium. A urine culture was set up as her urinalysis was normal. Her Aricept was held because it was felt this may have acutely contributed to her dehydration as well as hyponatremia. The patient's lab work was noted that her sodium had gone up to 128. The next morning, her potassium had gone from 3.3 to 4.0. Creatinine had improved from 1.6 down to 1.1. Hemoglobin had slight dilutional drop from 14.1 to 12.2. The patient's urinalysis was growing out Klebsiella bacteria. She was started on Bactrim single strength. Her COVID test had been negative. She had been seen by Physical Therapy, was up ambulating well, not felt to need any services. By 11/15, she had been started also on some Thermotabs. Her hemoglobin had actually improved to 13.0, but unfortunately her sodium had dropped to 126. She was eating well, potassium was 4.0, creatinine 1.2, GFR 43, glucose 91. Her magnesium had improved from 1.3 to 1.4. She was eating well. It was felt that even though the patient's electrolytes were not back to normal range, that she was eating well. She was instructed on eating a higher salt diet as she had been quite restricted due to her needing to eat a low-salt diet for his heart failure. Also, she was told to push fluids, but not just plain water, to drink juices and milk to help with hydration status. She was felt stable to be discharged home. She does not need home health. MEDICATIONS AT DISCHARGE: Will be levothyroxine 75 mcg 1 pill daily, calcium with vitamin D 1 pill twice a day, aspirin 81 mg 1 pill daily, vitamin B12 pills 1000 mcg 1 pill at bedtime, Tylenol Arthritis 650 one to two pills q.8 hours, Fosamax 70 mg 1 pill once a week, metoprolol XL 25 mg pill and a half daily, lisinopril 20 mg 1 pill daily, simvastatin 10 mg at bedtime, magnesium oxide 400 mg 1 pill twice a day, trimethoprim sulfamethoxazole single strength 1 pill twice a day for a total of 3 days' worth of therapy so she will get a day and a half worth of pills, Thermotabs 1 pill twice a day. The patient is to see me in a week's time in the clinic for a recheck. She will need to have a basic metabolic profile and magnesium level drawn an hour prior to her appointment. If in the meantime, she is feeling worse or weak, she should return to be seen. She is full code status. Also, at the clinic appointment, we will determine if we should place her on Namenda for memory depending on how her sodium level returns. GM11/15/2020 08:11:07 MODL: 11/16/2020 03:13:41 /[id number]
== END 2020-11-15 10:32 | disposition home or self-care (01) ==
LOC: VM.MS 10:04
PROVIDERS: ADMIT Family Medicine; ATTEND Family Medicine
DX: R53.1 Weakness (principal); E86.0 Dehydration; E87.1 Hypo-osmolality and hyponatremia; N30.00 Acute cystitis without hematuria; B96.1 Klebsiella pneumoniae [K. pneumoniae] as the cause of diseases classified elsewhere; E87.6 Hypokalemia; E83.42 Hypomagnesemia; G31.84 Mild cognitive impairment of uncertain or unknown etiology; I10 Essential (primary) hypertension; E03.9 Hypothyroidism, unspecified; E78.00 Pure hypercholesterolemia, unspecified; E53.8 Deficiency of other specified B group vitamins; R00.0 Tachycardia, unspecified; M81.0 Age-related osteoporosis without current pathological fracture; N17.9 Acute kidney failure, unspecified; Z20.822 Contact with and (suspected) exposure to COVID-19; Z88.0 Allergy status to penicillin; Z88.7 Allergy status to serum and vaccine; Z88.8 Allergy status to other drugs, medicaments and biological substances; Z79.82 Long term (current) use of aspirin; Z79.890 Hormone replacement therapy; Z79.899 Other long term (current) drug therapy; Z86.010 Personal history of colon polyps; Z98.890 Other specified postprocedural states
CPT/HCPCS: 36415; 80048; 80053; 81001; 83735; 85025; 85027; 85652; 86140; 87086; 87088; 87186; 97162-GP; A9270-GY; G0378; J1650; J3480; J7030; U0002

== ENCOUNTER 2021-01-20 09:57 | Emergency (ER) | payer OTHER, MEDICARE, BC ==
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
--- NOTE | 2021-01-20 11:07 | CR ---
[id number] RAD/RAD Cervical Spine 2-3V EXAM: RAD Cervical Spine 2-3V INDICATION: TRAUMA. COMPARISON: None. DISCUSSION: Overlying soft tissues limit evaluation below C6. Moderate to advanced disc degeneration C5-C6 with mild to moderate changes at the remaining disc levels. Mild to moderate diffuse facet arthropathy. Normal prevertebral soft tissue thickness. The vertebral bodies are normal in height and alignment with no fracture identified. IMPRESSION: 1. No acute findings. Koby Mendez MD 01/20/21 [id number] Thank you for allowing us to participate in the care of your patient.
[2021-01-20 21:20] VITALS: BP 216/90; PULSE 61
== END 2021-01-20 11:49 | disposition home or self-care (01) ==
LOC: VM.ED 09:57 → SUPCPDRO 09:57 → VM.ED 11:49
DX: M54.2 Cervicalgia (principal); E78.00 Pure hypercholesterolemia, unspecified; I10 Essential (primary) hypertension; E03.9 Hypothyroidism, unspecified; Z88.0 Allergy status to penicillin; Z88.7 Allergy status to serum and vaccine; Z88.8 Allergy status to other drugs, medicaments and biological substances; V49.10XA Passenger injured in collision with unspecified motor vehicles in nontraffic accident, initial encounter
CPT/HCPCS: 72040; 99283; 99284-25

== ENCOUNTER 2021-06-23 08:15 | Emergency (ER) | payer MEDICARE, BC ==
--- NOTE | 2021-06-23 08:48 | EDM.PDOC ---
ED HPI GENERAL MEDICAL PROBLEM - General Chief Complaint: Cardiovascular Problem Stated Complaint: Lightheadedness chest pain Time Seen by Provider: 06/23/21 08:30 Source of Information: Reports: Patient, Family History Limitations: Reports: No Limitations - History of Present Illness INITIAL COMMENTS - FREE TEXT/NARRATIVE: 86-year-old white female that presents the ER today with ongoing midsternal chest pressure/pain that she rates about a 4 out of 10 is been constant since maybe about 10:00 last night. She also states she is having some tingling down in her lower extremities that been constant all night as well as in her hands bilateral. She states she was able to sleep last night but it did wake her up intermittently through the night with a chest pressure in the tingling she says it seems to be constant and did not go away. She denies any radiation of the chest pain or no shortness of breath no nausea vomiting diaphoresis with the numbness and tingling she says it just feels kind of weird she has never had this sensation before she also has a little bit of lightheadedness. 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 - Related Data Allergies Allergy/AdvReac Type Severity Reaction Status Date / Time influenza virus vacc Allergy Unknown Rash Verified 06/23/21 08:33 trivalent, split [From Fluzone] Penicillins Allergy Unknown Shortness Verified 06/23/21 08:33 of Breath donepezil [From Aricept] Allergy Nausea Verified 06/23/21 08:33 atorvastatin [From Lipitor] AdvReac Unknown Muscle Verified 06/23/21 08:33 Aches Home Meds: Home Meds Aspirin [Lo-Dose Aspirin EC] 81 mg PO BEDTIME 06/21/16 [History] Calcium Citrate/Vitamin D2 [Salvador-Citrate Plus Vitamin D Tab] 1 tab PO BIDMEALS 06/21/16 [History] Levothyroxine 75 mcg PO DAILY 06/21/16 [History] Acetaminophen [Tylenol Arthritis] 650 - 1,300 mg PO Q8H PRN MDD 4000 mg/24 hours 11/07/18 [History] Cyanocobalamin (Vitamin B12) [Vitamin B12] 1,000 mcg PO BEDTIME 11/07/18 [History] Alendronate Sodium [Fosamax] 70 mg PO Q7D 05/10/19 [History] Metoprolol Succinate [Toprol XL] 37.5 mg PO DAILY 11/13/20 [History] Simvastatin [Zocor] 10 mg PO DAILY 11/13/20 [History] lisinopriL [Prinivil] 30 mg PO DAILY 11/13/20 [History] Memantine HCl [Namenda] 10 mg PO BID 06/23/21 [History] Past Medical History HEENT History: Reports: Hard of Hearing, Other (See Below) Other HEENT History: 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 Left wrist fracture. Complete tear of right rotator cuff Neurological History: Reports: Other (See Below) Other Neuro History: Memory Difficulty Psychiatric History: Reports: Other (See Below) Other Psychiatric History: High risk medication use Endocrine/Metabolic History: Reports: Hypothyroidism, Other (See Below) Other Endocrine/Metabolic History: Hyperglycemia Hematologic History: Reports: B12 Deficiency, Other (See Below) Other Hematologic History: Macrocytosis Oncologic (Cancer) History: Reports: None - Past Surgical History HEENT Surgical History: Reports: Cataract Surgery Cardiovascular Surgical History: Reports: Varicose GI Surgical History: Reports: Appendectomy, Cholecystectomy, Colonoscopy, Other (See Below) Other GI Surgeries/Procedures: Laparoscopic procedure for bowel obstruction in 1985 Female Surgical History: Reports: Hysterectomy Musculoskeletal Surgical History: Reports: Knee Replacement Oncologic Surgical History: Reports: None Social & Family History - Family History Family Medical History: No Pertinent Family History HEENT: Reports: None Cardiac: Reports: None GI: Reports: None : Reports: None OBGYN: Reports: None - Tobacco Use Tobacco Use Status *Q: Unknown Ever Used Tobacco - Caffeine Use Caffeine Use: Reports: Coffee Caffeine Use Comment: 4 ccups ED ROS GENERAL - Review of Systems Review Of Systems: See Below Constitutional: Reports: No Symptoms. Denies: Fever, Chills, Malaise, Weakness, Night Sweats, Diaphoresis HEENT: Reports: No Symptoms Respiratory: Reports: No Symptoms. Denies: Shortness of Breath, Wheezing, Pleuritic Chest Pain, Cough Cardiovascular: Reports: Chest Pain, Lightheadedness. Denies: Blood Pressure Problem, Claudication, Dyspnea on Exertion, Edema, Orthopnea, Palpitations, Syncope Endocrine: Reports: No Symptoms GI/Abdominal: Reports: No Symptoms. Denies: Abdominal Pain : Reports: No Symptoms Musculoskeletal: Reports: No Symptoms Skin: Reports: No Symptoms Neurological: Reports: Numbness, Tingling. Denies: Confusion, Dizziness, Headache, Paresthesia, Trouble Speaking, Difficulty Walking, Weakness, Change in Speech Psychiatric: Reports: No Symptoms Hematologic/Lymphatic: Reports: No Symptoms Immunologic: Reports: No Symptoms ED EXAM, GENERAL - Physical Exam Exam: See Below Exam Limited By: No Limitations General Appearance: Alert, WD/WN, No Apparent Distress, Other (Patient has normal speech logical thought process cranial nerves II through XII are intact she has equal facial sensation no noted pronator drift) Eye Exam: Bilateral Eye: EOMI, Normal Inspection Ears: Normal External Exam, Normal Canal, Hearing Grossly Normal, Normal TMs Nose: Normal Inspection, Normal Mucosa, No Blood Throat/Mouth: Normal Inspection, Normal Lips, Normal Teeth, Normal Gums, Normal Oropharynx, Normal Voice, No Airway Compromise Head: Atraumatic, Normocephalic Neck: Normal Inspection, Supple, Non-Tender, Full Range of Motion. No: Limited Range of Motion, Lymphadenopathy (L), Lymphadenopathy (R) Respiratory/Chest: No Respiratory Distress, Lungs Clear, Normal Breath Sounds, No Accessory Muscle Use, Chest Non-Tender Cardiovascular: Normal Peripheral Pulses, Regular Rate, Rhythm, No Edema, No Gallop, No JVD, No Murmur, No Rub GI/Abdominal: Normal Bowel Sounds, Soft, Non-Tender, No Organomegaly, No Distention. No: Guarding, Rigid, Rebound, Tender Back Exam: Full Range of Motion Extremities: Normal Inspection, Normal Range of Motion, Non-Tender, No Pedal Edema, Normal Capillary Refill Neurological: Alert, Oriented, CN II-XII Intact, Normal Cognition, Normal Gait, Normal Reflexes, No Motor/Sensory Deficits, Other (Patient has full range of motion with extremities equal retail analyst bilateral 5 of 5 strength upper and lower normal dorsiflexion plantar flexion equal soft touch sensation to the lower extremities/feet positive dorsalis pedis posterior tibialis bilatera 2+ DTR bilateral lower extremities) Psychiatric: Normal Affect, Normal Mood Skin Exam: Warm, Dry, Normal Color, No Rash #1 Interpretation EKG Date: 06/23/21 Time: 08:30 Rhythm: NSR Edmond: Normal P-Wave: Present QRS: Normal ST-T: Normal QT: Normal (Normal sinus rhythm mild noted T wave inversion no acute findings ST elevation or depression) Course - Vital Signs Text/Narrative:: CBC BMP troponin EKG all within normal limits patient was given 20 mg of lisinopril p.o. Patient was rechecked states she feels much better and her blood pressures came down to 182/85 she states numbness and tingling is gone she no longer has any chest pressure. She is okay with going home and states she will follow-up with her primary care provider in the next day or so if anything changes she will return here to the emergency room Last Recorded V/S: Last Vital Signs Temp 36.1 C 06/23/21 08:29 Pulse 67 06/23/21 10:32 Resp 16 06/23/21 08:29 BP 182/85 H 06/23/21 10:32 Pulse Ox 96 06/23/21 10:32 - Orders/Labs/Meds Labs: Laboratory Tests 06/23/21 06/23/21 Range/Units 09:00 09:00 WBC 6.1 (4.0-10.0) x10^3/uL RBC 3.82 L (4.00-5.50) x10^6/uL Hgb 13.0 (12.0-16.0) g/dL Hct 37.6 (33.0-47.0) % MCV 98.4 H (78.0-93.0) fL MCH 34.0 H (26.0-32.0) pg MCHC 34.6 (32.0-36.0) g/dL RDW Coeff of Reggie 12.0 (10.0-15.0) % Plt Count 282 (130-400) x10^3/uL Immature Gran % (Auto) 0.80 H (0.00-0.43) % Neut % (Auto) 69.3 (50.0-80.0) % Lymph % (Auto) 19.3 L (25.0-50.0) % [place] % (Auto) 7.2 (2.0-11.0) % Eos % (Auto) 2.3 (0.0-4.0) % Baso % (Auto) 1.1 (0.2-1.2) % Neut # (Auto) 4.2 (1.8-7.7) x10^3/uL Lymph # (Auto) 1.2 (1.0-4.8) x10^3/uL [place] # (Auto) 0.4 (0.0-0.8) x10^3/uL Eos # (Auto) 0.1 (0.0-0.5) x10^3/uL Baso # (Auto) 0.1 (0.0-0.2) x10^3/uL Immature Gran # (Auto) 0.05 (0.00-0.07) x10^3/uL Sodium 134 L (136-145) mmol/L Potassium 4.4 (3.5-5.1) mmol/L Chloride 98 (98-107) mmol/L Carbon Dioxide 28 (21-32) mmol/L Anion Gap 12.4 (5-15) mmol/L BUN 21 H (7-18) mg/dL Creatinine 1.0 (0.55-1.02) mg/dL Est Cr Clr Drug Dosing TNP Estimated GFR (MDRD) 52 Glucose 96 (70-99) mg/dL Calcium 9.6 (8.5-10.1) mg/dL Troponin I High Sens 8 (<=51) ng/L Meds: Medications Discontinued Medications Generic Name Dose Route Start Last Admin Trade Name Sudha PRN Reason Stop Dose Admin Lisinopril 40 mg 06/24/21 08:00 Lisinopril 20 Mg Tab PO DAILY [facility] Lisinopril 40 mg 06/23/21 09:01 06/23/21 09:07 Lisinopril 10 Mg Tab PO 06/23/21 09:02 40 mg ONETIME ONE Administration Departure - Departure Time of Disposition: 10:45 Disposition: Home, Self-Care 01 Condition: Good Clinical Impression: Hypertensive urgency Forms: ED Department Discharge Sepsis Event Note (ED) - Focused Exam Vital Signs: Vital Signs Temp Pulse Resp BP BP Pulse Ox 06/23/21 10:32 67 182/85 H 96 06/23/21 09:41 183/80 H 06/23/21 09:07 192/86 H 06/23/21 08:29 36.1 C 64 16 212/92 H 96 - Problem List & Annotations (1) Hypertensive urgency SNOMED Code(s): 969413312 Code(s): I16.0 - HYPERTENSIVE URGENCY Status: Acute Current Visit: Yes
[2021-06-23] MEDS ORDERED: Lisinopril 10 MG Tab PO ONE (09:01)
[2021-06-23 09:33] LABS: ANION GAP 12.4 mmol/L (5-15); CHLORIDE,CL 98 mmol/L (98-107); SODIUM,NA 134 mmol/L (136-145)
--- NOTE | 2021-06-23 09:36 | CR ---
[id number] RAD/RAD Chest PA or AP 1V EXAM: RAD Chest PA or AP 1V INDICATION: CHEST PAIN. COMPARISON: None. DISCUSSION/IMPRESSION: Cardiomediastinal silhouette is normal in size and contour. Lungs are clear. No pleural effusion or pneumothorax. Dashawn Casillas MD 06/23/21 0934 Thank you for allowing us to participate in the care of your patient.
[2021-06-23 10:32] VITALS: BP 182/85; PULSE 67
[2021-06-24] MEDS ORDERED: Lisinopril 20 MG Tab PO SCH (08:00)
== END 2021-06-23 11:01 | disposition home or self-care (01) ==
LOC: VM.ED 08:15
DX: I16.0 Hypertensive urgency (principal); E78.00 Pure hypercholesterolemia, unspecified; M19.90 Unspecified osteoarthritis, unspecified site; E03.9 Hypothyroidism, unspecified; Z88.7 Allergy status to serum and vaccine; Z88.0 Allergy status to penicillin; Z88.8 Allergy status to other drugs, medicaments and biological substances; Z79.82 Long term (current) use of aspirin; Z79.899 Other long term (current) drug therapy
CPT/HCPCS: 36415; 71045; 80048; 84484; 85025; 93005; 93010; 99284; 99285; A9270

== ENCOUNTER 2021-06-28 09:44 | Emergency (ER) | payer MEDICARE, BC ==
[2021-06-28] MEDS ORDERED: Sodium Chloride 0.9% 10 ML Syringe FLUSH PRN (10:00)
[2021-06-28] MEDS ORDERED: cloNIDine 0.1 MG Tab PO ONE (10:03)
[2021-06-28 10:50] LABS: CHLORIDE,CL 99 mmol/L (98-107); SODIUM,NA 135 mmol/L (136-145)
[2021-06-28 10:51] LABS: ANION GAP 11.7 mmol/L (5-15)
[2021-06-28 11:45] VITALS: BP 153/80; PULSE 63
== END 2021-06-28 11:32 | disposition home or self-care (01) ==
LOC: VM.ED 09:44
DX: I10 Essential (primary) hypertension (principal); E78.00 Pure hypercholesterolemia, unspecified; M19.90 Unspecified osteoarthritis, unspecified site; E03.9 Hypothyroidism, unspecified; Z88.7 Allergy status to serum and vaccine; Z88.0 Allergy status to penicillin; Z88.8 Allergy status to other drugs, medicaments and biological substances; Z79.82 Long term (current) use of aspirin; Z79.899 Other long term (current) drug therapy
CPT/HCPCS: 36415; 70450; 71045; 80053; 83735; 83880; 84100; 84443; 84484; 85025; 85610; 85730; 86140; 93005; 99284; A9270; 93010

== ENCOUNTER 2021-08-07 09:58 | Emergency (ER) | payer MEDICARE, BC ==
[2021-08-07 10:08] VITALS: PULSE 70
[2021-08-07] MEDS ORDERED: Sodium Chloride 0.9% 10 ML Syringe FLUSH PRN (10:17)
--- NOTE | 2021-08-07 10:23 | EDM.PDOC ---
ED HPI GENERAL MEDICAL PROBLEM - General Chief Complaint: Cardiovascular Problem Stated Complaint: HIGH BP Time Seen by Provider: 08/07/21 10:14 Source of Information: Reports: Patient History Limitations: Reports: No Limitations - History of Present Illness INITIAL COMMENTS - FREE TEXT/NARRATIVE: Patient presents with complaints of htn for the last day. Did not attempt to be seen in clinic. Complains of some dizziness and being lightheaded. Took BP meds this AM prior to arrival. Has been seen several times over the last few weeks for similar complaints. Onset: Gradual Duration: Intermittent - Related Data Allergies Allergy/AdvReac Type Severity Reaction Status Date / Time influenza virus vacc Allergy Unknown Rash Verified 08/07/21 10:09 trivalent, split [From Fluzone] Penicillins Allergy Unknown Shortness Verified 08/07/21 10:09 of Breath donepezil [From Aricept] Allergy Nausea Verified 08/07/21 10:09 atorvastatin [From Lipitor] AdvReac Unknown Muscle Verified 08/07/21 10:09 Aches Home Meds: Home Meds Aspirin [Lo-Dose Aspirin EC] 81 mg PO BEDTIME 06/21/16 [History] Calcium Citrate/Vitamin D2 [Salvador-Citrate Plus Vitamin D Tab] 1 tab PO BIDMEALS 06/21/16 [History] Levothyroxine 75 mcg PO DAILY 06/21/16 [History] Acetaminophen [Tylenol Arthritis] 650 - 1,300 mg PO Q8H PRN MDD 4000 mg/24 hours 11/07/18 [History] Cyanocobalamin (Vitamin B12) [Vitamin B12] 1,000 mcg PO BEDTIME 11/07/18 [History] Alendronate Sodium [Fosamax] 70 mg PO Q7D 05/10/19 [History] Metoprolol Succinate [Toprol XL] 37.5 mg PO DAILY 11/13/20 [History] Simvastatin [Zocor] 10 mg PO DAILY 11/13/20 [History] lisinopriL [Prinivil] 30 mg PO DAILY 11/13/20 [History] Memantine HCl [Namenda] 10 mg PO BID 06/23/21 [History] Past Medical History HEENT History: Reports: Hard of Hearing, Other (See Below) Other HEENT History: 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 Left wrist fracture. Complete tear of right rotator cuff Neurological History: Reports: Other (See Below) Other Neuro History: Memory Difficulty Psychiatric History: Reports: Other (See Below) Other Psychiatric History: High risk medication use Endocrine/Metabolic History: Reports: Hypothyroidism, Other (See Below) Other Endocrine/Metabolic History: Hyperglycemia Hematologic History: Reports: B12 Deficiency, Other (See Below) Other Hematologic History: Macrocytosis Oncologic (Cancer) History: Reports: None - Past Surgical History HEENT Surgical History: Reports: Cataract Surgery Cardiovascular Surgical History: Reports: Varicose GI Surgical History: Reports: Appendectomy, Cholecystectomy, Colonoscopy, Other (See Below) Other GI Surgeries/Procedures: Laparoscopic procedure for bowel obstruction in 1984 Female Surgical History: Reports: Hysterectomy Musculoskeletal Surgical History: Reports: Knee Replacement Oncologic Surgical History: Reports: None Social & Family History - Family History Family Medical History: No Pertinent Family History HEENT: Reports: None Cardiac: Reports: None GI: Reports: None : Reports: None OBGYN: Reports: None - Tobacco Use Tobacco Use Status *Q: Unknown Ever Used Tobacco - Caffeine Use Caffeine Use: Reports: Coffee Caffeine Use Comment: 4 ccups ED ROS GENERAL - Review of Systems Review Of Systems: See Below Constitutional: Reports: No Symptoms HEENT: Reports: No Symptoms Respiratory: Reports: No Symptoms Cardiovascular: Reports: No Symptoms Endocrine: Reports: No Symptoms GI/Abdominal: Reports: No Symptoms : Reports: No Symptoms Musculoskeletal: Reports: No Symptoms Skin: Reports: No Symptoms Neurological: Reports: Dizziness Psychiatric: Reports: No Symptoms Hematologic/Lymphatic: Reports: No Symptoms Immunologic: Reports: No Symptoms ED EXAM, GENERAL - Physical Exam Exam: See Below Exam Limited By: No Limitations General Appearance: Alert, WD/WN, No Apparent Distress Ears: Normal TMs Nose: Normal Inspection, Normal Mucosa, No Blood Throat/Mouth: Normal Inspection, Normal Lips, Normal Teeth, Normal Gums, Normal Oropharynx, Normal Voice, No Airway Compromise Head: Atraumatic, Normocephalic Neck: Normal Inspection, Supple, Non-Tender, Full Range of Motion Respiratory/Chest: No Respiratory Distress, Lungs Clear, Normal Breath Sounds, No Accessory Muscle Use, Chest Non-Tender Cardiovascular: Normal Peripheral Pulses, Regular Rate, Rhythm, No Edema, No Gallop, No JVD, No Murmur, No Rub GI/Abdominal: Normal Bowel Sounds, Soft, Non-Tender, No Organomegaly, No Distention, No Abnormal Bruit, No Mass Back Exam: Normal Inspection, Full Range of Motion, NT Extremities: Normal Inspection, Normal Range of Motion, Non-Tender, Normal Capillary Refill, No Pedal Edema Neurological: Alert, Oriented, CN II-XII Intact, Normal Cognition, Normal Gait, Normal Reflexes, No Motor/Sensory Deficits Psychiatric: Normal Affect, Normal Mood Skin Exam: Warm, Dry, Intact, Normal Color, No Rash Lymphatic: No Adenopathy Course - Vital Signs Last Recorded V/S: Last Vital Signs Temp 36.3 C 08/07/21 10:04 Pulse 70 08/07/21 10:04 Resp 16 08/07/21 10:04 BP 235/103 H 08/07/21 10:04 Pulse Ox 97 08/07/21 10:04 - Orders/Labs/Meds Orders: Active Orders 24 hr Category Date Time Status EKG Documentation Completion [RC] STAT Care 08/07/21 10:16 Active Sodium Chloride 0.9% [Saline Flush] Med 08/07/21 10:17 Active 10 ml FLUSH ASDIRECTED PRN Saline Lock Insert [OM.PC] Routine Oth 08/07/21 10:17 Ordered Medication Orders Sodium Chloride (Sodium Chloride 0.9% 10 Ml Syringe) 10 ml FLUSH ASDIRECTED PRN PRN Reason: Keep Vein Open Labs: Laboratory Tests 08/07/21 08/07/21 Range/Units 10:27 10:27 WBC 7.2 (4.0-10.0) x10^3/uL RBC 4.30 (4.00-5.50) x10^6/uL Hgb 14.6 D (12.0-16.0) g/dL Hct 43.6 (33.0-47.0) % MCV 101.4 H (78.0-93.0) fL MCH 34.0 H (26.0-32.0) pg MCHC 33.5 (32.0-36.0) g/dL RDW Coeff of Reggie 12.7 (10.0-15.0) % Plt Count 334 (130-400) x10^3/uL Immature Gran % (Auto) 0.70 H (0.00-0.43) % Neut % (Auto) 71.5 (50.0-80.0) % Lymph % (Auto) 16.9 L (25.0-50.0) % [place] % (Auto) 8.0 (2.0-11.0) % Eos % (Auto) 2.1 (0.0-4.0) % Baso % (Auto) 0.8 (0.2-1.2) % Neut # (Auto) 5.2 (1.8-7.7) x10^3/uL Lymph # (Auto) 1.2 (1.0-4.8) x10^3/uL [place] # (Auto) 0.6 (0.0-0.8) x10^3/uL Eos # (Auto) 0.2 (0.0-0.5) x10^3/uL Baso # (Auto) 0.1 (0.0-0.2) x10^3/uL Immature Gran # (Auto) 0.05 (0.00-0.07) x10^3/uL Sodium 141 (136-145) mmol/L Potassium 4.2 (3.5-5.1) mmol/L Chloride 102 (98-107) mmol/L Carbon Dioxide 29 (21-32) mmol/L Anion Gap 14.2 (5-15) mmol/L BUN 20 H (7-18) mg/dL Creatinine 1.1 H (0.55-1.02) mg/dL Est Cr Clr Drug Dosing TNP Estimated GFR (MDRD) 47 Glucose 94 (70-99) mg/dL Calcium 10.0 (8.5-10.1) mg/dL Corrected Calcium 10.0 (8.5-10.1) mg/dL Magnesium 2.1 (1.8-2.4) mg/dL Total Bilirubin 0.6 (0.2-1.0) mg/dL AST 13 L (15-37) U/L ALT 16 (14-59) U/L Alkaline Phosphatase 55 (46-116) U/L Troponin I High Sens 8 (<=51) ng/L NT-Pro-B Natriuret Pep 846 H (<=450) pg/mL Total Protein 7.5 (6.4-8.2) g/dL Albumin 4.0 (3.4-5.0) g/dL Globulin 3.5 Albumin/Globulin Ratio 1.14 Meds: Medications Generic Name Dose Route Start Last Admin Trade Name Freq PRN Reason Stop Dose Admin Sodium Chloride 10 ml 08/07/21 10:17 Sodium Chloride 0.9% 10 Ml Syringe FLUSH ASDIRECTED PRN Keep Vein Open Discontinued Medications Generic Name Dose Route Start Last Admin Trade Name Freq PRN Reason Stop Dose Admin Clonidine HCl 0.1 mg 08/07/21 11:43 Clonidine 0.1 Mg Tab PO 08/07/21 11:44 ONETIME ONE Labetalol HCl 10 mg 08/07/21 11:12 08/07/21 11:17 Labetalol 20 Mg/4 Ml Syringe IVPUSH 08/07/21 11:13 10 mg NOW ONE Administration Protocol Departure - Departure Time of Disposition: 11:58 Disposition: Home, Self-Care 01 Condition: Good Clinical Impression: Hypertensive heart disease Instructions: Hypertension, Adult, [id number] Forms: ED Department Discharge Additional Instructions: 1. Increase your toprol xl to 75 mg once daily. This was done with consultation with Dr. Daly 2. Follow up with Dr. Daly next week 3. Take your blood pressure and pulse before taking your medications 4. Talk with Dr. Daly regarding any parameters for holding your blood pressure medications Sepsis Event Note (ED) - Focused Exam Vital Signs: Vital Signs Temp Pulse Resp BP Pulse Ox 08/07/21 10:04 36.3 C 70 16 235/103 H 97 - Problem List & Annotations (1) Hypertensive heart disease SNOMED Code(s): 92689030 Code(s): I11.9 - HYPERTENSIVE HEART DISEASE WITHOUT HEART FAILURE Status: Acute Current Visit: Yes - My Orders Last 24 Hours: My Active Orders 08/07/21 10:16 EKG Documentation Completion [RC] STAT 08/07/21 10:17 Sodium Chloride 0.9% [Saline Flush] 10 ml FLUSH ASDIRECTED PRN Saline Lock Insert [OM.PC] Routine - Assessment/Plan Last 24 Hours: My Active Orders 08/07/21 10:16 EKG Documentation Completion [RC] STAT 08/07/21 10:17 Sodium Chloride 0.9% [Saline Flush] 10 ml FLUSH ASDIRECTED PRN Saline Lock Insert [OM.PC] Routine
[2021-08-07 11:03] LABS: ANION GAP 14.2 mmol/L (5-15); CHLORIDE,CL 102 mmol/L (98-107); SODIUM,NA 141 mmol/L (136-145)
--- NOTE | 2021-08-07 11:08 | CR ---
[id number] RAD/RAD Chest PA or AP 1V EXAM: RAD Chest PA or AP 1V INDICATION: HYPERTENSION. COMPARISON: June 28, 2021. DISCUSSION/IMPRESSION: Cardiomegaly and central vascular congestion, similar to the prior examination. Lungs are clear. No pleural effusion or pneumothorax. Dashawn Casillas MD 08/07/21 1106 Thank you for allowing us to participate in the care of your patient.
[2021-08-07] MEDS ORDERED: Labetalol 20 MG/4 ML Syringe IVPUSH ONE (11:12)
[2021-08-07] MEDS ORDERED: cloNIDine 0.1 MG Tab PO ONE (11:43)
[2021-08-07 12:01] VITALS: BP 178/80
== END 2021-08-07 12:15 | disposition home or self-care (01) ==
LOC: VM.ED 09:58
DX: I11.9 Hypertensive heart disease without heart failure (principal); E78.00 Pure hypercholesterolemia, unspecified; M19.90 Unspecified osteoarthritis, unspecified site; E03.9 Hypothyroidism, unspecified; Z88.7 Allergy status to serum and vaccine; Z88.0 Allergy status to penicillin; Z88.8 Allergy status to other drugs, medicaments and biological substances; Z79.82 Long term (current) use of aspirin; Z79.899 Other long term (current) drug therapy
CPT/HCPCS: 71045; 80053; 83735; 83880; 84484; 85025; 93005; 96374; 99284; 99284-25; A9270-GY; J3490

== ENCOUNTER 2021-08-09 11:15 | Emergency (ER) | payer MEDICARE, BC ==
[2021-08-09] MEDS ORDERED: Sodium Chloride 0.9% 10 ML Syringe FLUSH PRN (11:34)
[2021-08-09] MEDS ORDERED: Labetalol 20 MG/4 ML Syringe IVPUSH ONE (11:34)
--- NOTE | 2021-08-09 11:45 | EDM.PDOC ---
ED HPI GENERAL MEDICAL PROBLEM - General Stated Complaint: NOT FEELING WELL Time Seen by Provider: 08/09/21 11:15 Source of Information: Reports: Patient, Family History Limitations: Reports: No Limitations - History of Present Illness INITIAL COMMENTS - FREE TEXT/NARRATIVE: Patient comes emergency department today with complaints of dizziness and hypertension. This patient has been seen multiple times in the emergency department as well as the primary care setting over the past mental for severe hypertension. This patient was just seen in the emergency department approximately 48 hours ago where she had her metoprolol increased from 50 mg a day to 75 mg a day. Since that time she has had continued quite high blood pressure at home with a systolic murmur in the 200s and diastolic numbers in the 110s. She has developed dizziness generalized malaise and lack of energy. She has had no headache visual acuity changes. No paresthesias of her upper lower extremity. No diplopia. No confusion or change in her speech or thought process. She has had no chest pain no shortness of breath or difficulty breathing. No syncope palpitations. No fever no chills. No abdominal pain no nausea vomiting. No hematuria dysuria urinary frequency. No black tarry stools. She has otherwise been taking her medications as prescribed. - Related Data Allergies Allergy/AdvReac Type Severity Reaction Status Date / Time influenza virus vacc Allergy Unknown Rash Verified 08/09/21 19:42 trivalent, split [From Fluzone] Penicillins Allergy Unknown Shortness Verified 08/09/21 19:42 of Breath donepezil [From Aricept] Allergy Nausea Verified 08/09/21 19:42 atorvastatin [From Lipitor] AdvReac Unknown Muscle Verified 08/09/21 19:42 Aches Home Meds: Home Meds Aspirin [Lo-Dose Aspirin EC] 81 mg PO BEDTIME 06/21/16 [History] Calcium Citrate/Vitamin D2 [Salvador-Citrate Plus Vitamin D Tab] 1 tab PO BIDMEALS 06/21/16 [History] Levothyroxine 75 mcg PO DAILY 06/21/16 [History] Acetaminophen [Tylenol Arthritis] 650 - 1,300 mg PO Q8H PRN MDD 4000 mg/24 hours 11/07/18 [History] Cyanocobalamin (Vitamin B12) [Vitamin B12] 1,000 mcg PO BEDTIME 11/07/18 [History] Alendronate Sodium [Fosamax] 70 mg PO Q7D 05/10/19 [History] Metoprolol Succinate [Toprol XL] 37.5 mg PO DAILY 11/13/20 [History] Simvastatin [Zocor] 10 mg PO DAILY 11/13/20 [History] lisinopriL [Prinivil] 30 mg PO DAILY 11/13/20 [History] Memantine HCl [Namenda] 10 mg PO BID 06/23/21 [History] amLODIPine [Norvasc] 10 mg PO DAILY #15 tab 08/09/21 [Rx] Past Medical History HEENT History: Reports: Hard of Hearing, Other (See Below) Other HEENT History: 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 Left wrist fracture. Complete tear of right rotator cuff Neurological History: Reports: Other (See Below) Other Neuro History: Memory Difficulty Psychiatric History: Reports: Other (See Below) Other Psychiatric History: High risk medication use Endocrine/Metabolic History: Reports: Hypothyroidism, Other (See Below) Other Endocrine/Metabolic History: Hyperglycemia Hematologic History: Reports: B12 Deficiency, Other (See Below) Other Hematologic History: Macrocytosis Oncologic (Cancer) History: Reports: None - Past Surgical History HEENT Surgical History: Reports: Cataract Surgery Cardiovascular Surgical History: Reports: Varicose GI Surgical History: Reports: Appendectomy, Cholecystectomy, Colonoscopy, Other (See Below) Other GI Surgeries/Procedures: Laparoscopic procedure for bowel obstruction in 1984 Female Surgical History: Reports: Hysterectomy Musculoskeletal Surgical History: Reports: Knee Replacement Oncologic Surgical History: Reports: None Social & Family History - Family History Family Medical History: No Pertinent Family History HEENT: Reports: None Cardiac: Reports: None GI: Reports: None : Reports: None OBGYN: Reports: None - Caffeine Use Caffeine Use: Reports: Coffee Caffeine Use Comment: 4 ccups ED ROS GENERAL - Review of Systems Review Of Systems: Comprehensive ROS is negative, except as noted in HPI. ED EXAM, GENERAL - Physical Exam Exam: See Below Exam Limited By: No Limitations General Appearance: Alert, WD/WN, No Apparent Distress Eye Exam: Bilateral Eye: EOMI, PERRL Ears: Normal External Exam, Normal TMs Nose: Normal Inspection, Normal Mucosa, No Blood Throat/Mouth: Normal Inspection, Normal Lips, Normal Teeth, Normal Oropharynx, Normal Voice, No Airway Compromise Head: Atraumatic, Normocephalic Neck: Normal Inspection, Supple, Non-Tender, Full Range of Motion Respiratory/Chest: No Respiratory Distress, Lungs Clear, No Accessory Muscle Use, Chest Non-Tender Cardiovascular: Normal Peripheral Pulses, Regular Rate, Rhythm GI/Abdominal: Normal Bowel Sounds, Soft (Female) Exam: Deferred Rectal (Female) Exam: Deferred Back Exam: Normal Inspection Extremities: Normal Inspection, Normal Range of Motion, Normal Capillary Refill Neurological: Alert, Oriented, CN II-XII Intact, Normal Cognition, Normal Gait, Normal Reflexes, No Motor/Sensory Deficits Psychiatric: Normal Affect, Normal Mood Skin Exam: Warm, Dry, Intact, Normal Color, No Rash Lymphatic: No Adenopathy Course - Vital Signs Last Recorded V/S: Last Vital Signs Temp 97.1 F 08/09/21 11:10 Pulse 72 08/09/21 13:55 Resp 16 08/09/21 13:55 BP 142/78 H 08/09/21 13:55 Pulse Ox 99 08/09/21 13:55 - Orders/Labs/Meds Labs: Laboratory Tests 08/09/21 08/09/21 08/09/21 Range/Units 11:55 12:03 12:03 WBC 6.7 (4.0-10.0) x10^3/uL RBC 4.54 (4.00-5.50) x10^6/uL Hgb 15.3 (12.0-16.0) g/dL Hct 45.4 (33.0-47.0) % MCV 100.0 H (78.0-93.0) fL MCH 33.7 H (26.0-32.0) pg MCHC 33.7 (32.0-36.0) g/dL RDW Coeff of Reggie 12.7 (10.0-15.0) % Plt Count 342 (130-400) x10^3/uL Immature Gran % (Auto) 0.60 H (0.00-0.43) % Neut % (Auto) 76.3 (50.0-80.0) % Lymph % (Auto) 14.4 L (25.0-50.0) % [place] % (Auto) 6.6 (2.0-11.0) % Eos % (Auto) 1.5 (0.0-4.0) % Baso % (Auto) 0.6 (0.2-1.2) % Neut # (Auto) 5.1 (1.8-7.7) x10^3/uL Lymph # (Auto) 1.0 (1.0-4.8) x10^3/uL Bennett # (Auto) 0.4 (0.0-0.8) x10^3/uL Eos # (Auto) 0.1 (0.0-0.5) x10^3/uL Baso # (Auto) 0.0 (0.0-0.2) x10^3/uL Immature Gran # (Auto) 0.04 (0.00-0.07) x10^3/uL Sodium 138 (136-145) mmol/L Potassium 3.6 (3.5-5.1) mmol/L Chloride 99 (98-107) mmol/L Carbon Dioxide 30 (21-32) mmol/L Anion Gap 12.6 (5-15) mmol/L BUN 18 (7-18) mg/dL Creatinine 1.1 H (0.55-1.02) mg/dL Est Cr Clr Drug Dosing TNP Estimated GFR (MDRD) 47 Glucose 88 (70-99) mg/dL Calcium 10.1 (8.5-10.1) mg/dL Troponin I High Sens 10 (<=51) ng/L TSH, Ultra Sensitive 1.940 (0.358-3.74) uIU/mL Urine Color Yellow (YELLOW) Urine Appearance Clear (CLEAR) Urine pH 7.0 (5.0-8.0) Ur Specific [place] 1.020 Urine Protein Negative (NEGATIVE) mg/dL Urine Glucose (UA) Negative (NEGATIVE) mg/dL Urine Ketones Negative (NEGATIVE) mg/dL Urine Occult Blood Negative (NEGATIVE) Urine Nitrite Negative (NEGATIVE) Urine Bilirubin Negative (NEGATIVE) Urine Urobilinogen 0.2 (0.2) EU/dL Ur Leukocyte Esterase Small H (NEGATIVE) U Hyaline Cast (Auto) Rare Urine RBC Not seen (NOT SEEN) /HPF Urine WBC 0-5 (NOT SEEN) /HPF Ur Squamous Epith Cells Rare (NOT SEEN) /HPF Urine Bacteria Rare (NOT SEEN) /HPF Urine Mucus Not seen (NOT SEEN) /LPF Meds: Medications Discontinued Medications Generic Name Dose Route Start Last Admin Trade Name Freq PRN Reason Stop Dose Admin Amlodipine Besylate 5 mg 08/09/21 12:05 08/09/21 12:23 Amlodipine 5 Mg Tab PO 08/09/21 12:06 5 mg ONETIME ONE Administration Labetalol HCl 10 mg 08/09/21 11:34 08/09/21 12:04 Labetalol 20 Mg/4 Ml Syringe IVPUSH 08/09/21 11:35 10 mg NOW ONE Administration Protocol Sodium Chloride 10 ml 08/09/21 11:34 Sodium Chloride 0.9% 10 Ml Syringe FLUSH ASDIRECTED PRN Keep Vein Open - Radiology Interpretation Free Text/Narrative:: CT of the head per radiology shows no acute intracranial findings. - Re-Assessments/Exams Free Text/Narrative Re-Assessment/Exam: I did review this patient's chart quite extensively here in the hospital as well as through [facility]. She has had a minimal increase of her amlodipine recently. She is on lisinopril. I have seen that they have been going up quite aggressively on her metoprolol and her blood pressure seems to be somewhat resistant to this although this is not overtly surprising to me. Metoprolol primarily is used in the presence of tacky dysrhythmias as well as heart failure which this patient has neither. She is also developed dizziness or fatigue and malaise since she has had increase metoprolol which does not surprise me either due to her age. Although she does have new symptoms today. She was evaluated for these. CT of the head is negative. Laboratory evaluation is rather unremarkable with a normal troponin 08/13/21 14:51 Normal urinalysis without any protein good kidney function and otherwise unremarkable labs. She did have 10 mg of labetalol given IV push with quite a bit of improvement of her hypertension although this did not assist with her unsteadiness or dizziness as she relates it. I reviewed at length with the patient and her daughter my concerns of metoprolol especially high dosing in an elderly person. I did print out from up-to-date the guidelines for hypertensive management. I feel that metoprolol is not really a great if at all indicated blood pressure in the elderly person without the indications for tacky dysrhythmias or heart failure which is patient has neither of. Sometimes you can get a sympathetic response of elevated blood pressure due to the beta-blockade and I think this could be an aspect of what her symptomatology is as well as her nonimprovement of her blood pressure. She is max dose appropriate therapy on her lisinopril. She is only on 5 mg of a mlodipine. I cannot discontinue her metoprolol completely as she could go through withdrawal from her beta-blockade. I will reduce her metoprolol down to 50 mg a day and double her amlodipine. I will have her monitor her symptoms at home. Have her follow-up in the clinic for recheck on . She is exquisitely comfortable with this plan and her questions are answered her dizziness or unsteadiness is completely resolved prior to discharge from the hospital. On 08/13/2021 I did discuss this patient over the phone. She has felt much better than she has in many weeks. She has much more energy than she has in months. Her exercise tolerance is great. She has had no headache visual acuity changes no dizziness. Her blood pressure today was 147/82. She has no peripheral edema to her lower extremities. She has had no weakness dizziness lightheadedness. She has had an appointment with her primary care provider tomorrow. At this time I would consider although this will be left to the primary care provider to consider continued down titration of the metoprolol due to the risk factors of this elderly person and beta-blockade without the indications for such medication. Discontinuation eventually of the metoprolol and initiation of hydrochlorothiazide or chlorthalidone would be more indicated at this time without her tachydysrhythmias or history of heart failure despite her risk factors of age and beta blockade. Although this will be left up to her primary care provider. I have a very long discussion with the patient over the phone and she is very happy with her blood pressure and her symptomatology at this time. Her questions were answered. Departure - Departure Time of Disposition: 13:43 Disposition: Home, Self-Care 01 Clinical Impression: Hypertension Qualifiers: Hypertension type: unspecified Qualified Code(s): I10 - Essential (primary) hypertension Prescriptions: amLODIPine [Norvasc] 10 mg PO DAILY #15 tab Instructions: Hypertension, Adult, [id number] Referrals: Norma Daly MD [Primary Care Provider] - Forms: ED Department Discharge Additional Instructions: Metoprolol is not a primary blood pressure and could be the cause of your dizziness today with a elevated BP. We will decrease your metoprolol to 50mg daily as this was recently increased and then you developed dizziness. Metoprolol is primarily for heart failure and irregular and fast heart beats and I would recommend with your age considering slowly tapering as you do not have any indications to be on this medications. Continue the lisinopril at the 30mg a day. Increase your Amlodipine/Norvasc to 10mg daily starting 08/10/[address] Daly next week in the clinic on . Return to the ED if new or worsening symptoms.
[2021-08-09] MEDS ORDERED: amLODIPine 5 MG Tab PO ONE (12:05)
[2021-08-09 12:38] LABS: ANION GAP 12.6 mmol/L (5-15); CHLORIDE,CL 99 mmol/L (98-107); SODIUM,NA 138 mmol/L (136-145)
--- NOTE | 2021-08-09 13:16 | CT ---
[id number] CT/CT Head WO IV EXAM: CT Head WO IV CLINICAL DATA: HYPERTENSION,DIZZY. COMPARISON STUDY: June 28, 2021. FINDINGS: No intracranial hemorrhage, extra-axial fluid collection, mass, or acute ischemia. No hydrocephalus. 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 No change from prior examination. Calvarium intact. Paranasal sinuses and mastoid air cells are clear. IMPRESSION: No acute intracranial findings. Dashawn Casillas MD 08/09/21 0165 Thank you for allowing us to participate in the care of your patient.
[2021-08-09 19:56] VITALS: BP 142/78; PULSE 72
--- NOTE | 2021-08-13 15:44 | PCM.EKG ---
#1 Interpretation EKG Date: 08/09/21 Time: 12:08 Rhythm: NSR Rate (Beats/Min): 67 [place]: Normal P-Wave: Present QRS: Normal Comparison: No Change
== END 2021-08-09 14:00 | disposition home or self-care (01) ==
LOC: VM.ED 11:15
DX: I10 Essential (primary) hypertension (principal); E78.00 Pure hypercholesterolemia, unspecified; E03.9 Hypothyroidism, unspecified; Z88.7 Allergy status to serum and vaccine; Z79.82 Long term (current) use of aspirin; Z79.899 Other long term (current) drug therapy
CPT/HCPCS: 70450; 80048; 81001; 84443; 84484; 85025; 87086; 87088; 87186; 93005; 96374; 99284; 99284-25; A9270-GY; J3490

== ENCOUNTER 2023-02-03 11:46 | Emergency (ER) | payer MEDICARE ==
[2023-02-03 12:12] LABS: BASOPHILS PERCENT AUTO 0.5 % (0.2-1.2); EOSINOPHILS PERCENT AUTO 0.3 % (0.0-4.0); HEMATOCRIT 40.3 % (33.0-47.0); HEMOGLOBIN 14.3 g/dL (12.0-16.0); IMMATURE GRAN ABSOLUTE AUTO 0.06 x10^3/uL (0.00-0.07); LYMPHOCYTES ABSOLUTE AUTO 1.4 x10^3/uL (1.0-4.8); LYMPHOCYTES PERCENT AUTO 22.8 % (25.0-50.0); MEAN CORPUSCULAR HGB CONC 35.5 g/dL (32.0-36.0); MONOCYTES ABSOLUTE AUTO 0.6 x10^3/uL (0.0-0.8); NEUTROPHILS ABSOLUTE AUTO 4.1 x10^3/uL (1.8-7.7); NEUTROPHILS PERCENT AUTO 66.4 % (50.0-80.0); PLATELET COUNT,PLT 299 x10^3/uL (130-400); WHITE BLOOD CELL COUNT,WBC 6.1 x10^3/uL (4.0-10.0)
[2023-02-03 12:35] LABS: APPEARANCE,URINE SLIGHTLY CLOUDY (CLEAR); BILIRUBIN,URINE NEGATIVE (NEGATIVE); COLOR,URINE LIGHT YELLOW (YELLOW); GLUCOSE,URINE NEGATIVE (NEGATIVE); KETONES,URINE NEGATIVE (NEGATIVE); LEUKOCYTE ESTERASE,URINE SMALL (NEGATIVE); NITRITE,URINE POSITIVE (NEGATIVE); OCCULT BLOOD,URINE NEGATIVE (NEGATIVE); PH,URINE 7.5 (5.0-8.0); PROTEIN,URINE NEGATIVE (NEGATIVE)
[2023-02-03 12:38] LABS: A/G RATIO 1.19; ALANINE AMINOTRANSFERASE,ALT 17 U/L (14-59); ALBUMIN 4.3 g/dL (3.4-5.0); ALKALINE PHOSPHATASE 60 U/L (46-116); ASPARTATE AMNIOTRANSFERASE,AST 15 U/L (15-37); BLOOD UREA NITROGEN,BUN 22 mg/dL (7-18); CALCIUM 10.2 mg/dL (8.5-10.1); CARBON DIOXIDE,CO2 23 mmol/L (21-32); CHLORIDE,CL 96 mmol/L (98-107); CREATININE 1.1 mg/dL (0.55-1.02); GLUCOSE RANDOM 101 mg/dL (70-99); MAGNESIUM 1.7 mg/dL (1.8-2.4); POTASSIUM,K 4.4 mmol/L (3.5-5.1); PROTEIN TOTAL,TP 7.9 g/dL (6.4-8.2); SODIUM,NA 134 mmol/L (136-145)
[2023-02-03 12:40] LABS: ANION GAP 19.4 mmol/L (5-15); ESTIMATED GFR 48 mL/min (>=60)
[2023-02-03 12:44] LABS: BACTERIA,URINE MANY /HPF (NOT SEEN); MUCUS,URINE RARE /LPF (NOT SEEN); RBC,URINE 0-5 /HPF (NOT SEEN); SQUAMOUS EPITHELIAL CELLS,UR MODERATE /HPF (NOT SEEN); WBC,URINE 0-5 /HPF (NOT SEEN)
[2023-02-04 21:35] VITALS: BP 158/77; PULSE 87
== END 2023-02-03 13:21 | disposition home or self-care (01) ==
LOC: VM.ED 11:46
DX: N30.01 Acute cystitis with hematuria (principal); E78.00 Pure hypercholesterolemia, unspecified; I10 Essential (primary) hypertension; M19.90 Unspecified osteoarthritis, unspecified site; E03.9 Hypothyroidism, unspecified; Z88.8 Allergy status to other drugs, medicaments and biological substances; Z88.7 Allergy status to serum and vaccine; Z88.0 Allergy status to penicillin; Z79.82 Long term (current) use of aspirin; Z79.899 Other long term (current) drug therapy
CPT/HCPCS: 70450; 71046; 80053; 81001; 83735; 84484; 85025; 87086; 87088; 87186; 93005; 93010; 99284; 99285